=== PATIENT | male | born 1960 | race Caucasian/White ===

== ENCOUNTER 2017-02-06 07:00 | Outpatient (CLI) | payer OTHER ==
--- NOTE | 2017-02-06 17:02 | Ultrasound Report ---
EXAM: ABDOMEN ULTRASOUND LIMITED, RUQ EXAM DATE: 02/06/2017 07:47 AM. CLINICAL HISTORY: Elevated liver function tests COMPARISON: None. TECHNIQUE: Real-time scanning was performed with static images obtained. FINDINGS: Liver: Diffuse increase in echogenicity without focal lesion. 16.5 cm. Main portal vein flow: Hepatop etal. Gallbladder: Normal. No stones, wall thickening, or sonographic Wilkerson's sign. Biliary System: CBD measures 3 mm. No intrahepatic or extrahepatic ductal dilatation. Other: Right kidney measures 10.1 cm without hydronephrosis. IMPRESSION: 1. No evidence of cholelithiasis or cholecystitis. 2. Fatty infiltration of the liver. [facility] Referring Provider Line: [phone] SITE ID: [id number]
== END 2017-02-06 07:01 | disposition home or self-care (01) ==
LOC: DI 07:00
PROVIDERS: ATTEND Internal Medicine
DX: K76.0 Fatty (change of) liver, not elsewhere classified (principal)
CPT/HCPCS: 76705

== ENCOUNTER 2018-10-22 20:04 | Observation (INO) | payer OTHER ==
[2018-10-22] MEDS ORDERED: SODIUM CHLORIDE 0.9% 1,000 ML IV ONE (20:52)
[2018-10-22] MEDS ORDERED: KETOROLAC 15 MG/ML VIAL IVP STA (20:52)
[2018-10-22] MEDS ORDERED: METOCLOPRAMIDE 10 MG/2 ML VIAL IVP STA (20:52)
[2018-10-22] MEDS ORDERED: diphenhydrAMINE INJ 50 MG/ML VIAL IVP STA (20:52)
[2018-10-22] MEDS ORDERED: MAGNESIUM SULFATE 2 GRAM 2 GM/50 ML BAG IV ONE (20:53)
[2018-10-22 20:57] LABS: BASOPHILS % (AUTO) 0.8 %; EOSINOPHILS % (AUTO) 0.8 %; HGB - HEMOGLOBIN 14.2 g/dL (14.0-18.0); LYMPHOCYTES # (AUTO) 1.1 10^3/uL (1.5-3.5); LYMPHOCYTES % (AUTO) 19.5 %; MEAN CORPUSCULAR HEMOGLOBIN 32.3 pg (27.0-31.0); MEAN CORPUSCULAR HGB CONC 33.9 g/dL (32.0-36.0); MEAN CORPUSCULAR VOLUME 95.4 fL (80.0-94.0); MEAN PLATELET VOLUME 8.1 fL (7.4-11.4); MONOCYTES # (AUTO) 0.5 10^3/uL (0.0-1.0); MONOCYTES % (AUTO) 9.4 %; NEUTROPHILS % (AUTO) 69.5 %; PLT - PLATELET COUNT 193 10^3/uL (130-450); RED CELL DISTRIBUTION WIDTH 13.3 % (12.0-15.0); WHITE BLOOD COUNT 5.7 x10^3/uL (4.8-10.8)
--- NOTE | 2018-10-22 21:12 | ED Physician Documentation ---
History of Present Illness - Stated complaint Stated Complaint: HBP/MANCUSO - Chief complaint Chief Complaint: Neuro - Additonal information Additional information: 58-year-old male presents the emergency department with headache for the past week, weakness, elevated blood pressure and generally feeling unwell which has progressively worsened. The patient reports numbness and tingling. The patient is on losartan to help manage his blood pressure.The patient's symptoms are described as moderate. No relieving factors. The patient's reporting that he had worsening headache tonight with nausea and vomiting. Review of Systems Constitutional: denies: Fever, Fatigue Eyes: denies: Discharge Ears: denies: Ear pain Nose: denies: Congestion Throat: denies: Sore throat Cardiac: denies: Chest pain / pressure Respiratory: denies: Cough GI: reports: Nausea, Vomiting. denies: Abdominal Pain : denies: Dysuria Neurologic: reports: Numbness, Headache. denies: Generalized weakness, Focal weakness, Syncope, Seizure, Confused Psychiatric: denies: Depressed PD PAST MEDICAL HISTORY - Past Medical History Past Medical History: Yes GI: GERD - Past Surgical History Past Surgical History: Yes General: Hiatal hernia repair - Present Medications Home Medications: Ambulatory Orders Medication Instructions Recorded Confirmed Omeprazole Magnesium [Prilosec Otc] 20 mg PO DAILY 07/19/15 10/22/18 Losartan Potassium 1 tab PO DAILY 10/22/18 10/22/18 - Allergies Allergies/Adverse Reactions: Allergies Allergy/AdvReac Type Severity Reaction Status Date / Time No Known Drug Allergies Allergy Verified 10/22/18 20:37 - Social History Does the pt smoke?: No Smoking Status: Never smoker Does the pt drink ETOH?: No Does the pt have substance abuse?: Yes - Immunizations Immunizations are current?: No - POLST Patient has POLST: No PD ED PE NORMAL - General General: Alert and oriented X 3, No acute distress - HEENT HEENT: Atraumatic, PERRL, EOMI, Ears normal, Moist mucous membranes - Neck Neck: Supple, no meningeal sign - Cardiac Cardiac: RRR, Strong equal pulses - Abdomen Abdomen: Soft, Non tender - Back Back: No CVA TTP - Derm Derm: Normal color - Extremities Extremities: No deformity - Neuro Neuro: Alert and oriented X 3, 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, No motor deficit, No sensory deficit, Normal speech - Psych Psych: Normal mood Results - Vitals Vitals: Vital Signs - 24 hr 10/22/18 10/22/18 10/22/18 20:18 20:50 21:07 Temperature 36.5 C Heart Rate 70 75 71 Respiratory 18 13 15 Rate Blood Pressure 185/101 H 191/121 H 170/116 H O2 Saturation 98 98 96 10/22/18 10/22/18 10/22/18 21:18 21:40 22:09 Temperature Heart Rate 68 72 Respiratory 14 14 Rate Blood Pressure 172/113 H 176/104 H 155/92 H O2 Saturation 97 97 Oxygen O2 Source Room air - EKG (time done) 20:20 Rate: Rate (enter#) Rhythm: NSR Mullens: Normal Intervals: Normal OH, QRS normal QRS: Normal Ischemia: Non specific changes Compare to prior EKG: Old EKG unavailable - Labs Labs: Laboratory Tests 10/22/18 10/22/18 10/22/18 20:45 20:45 20:45 WBC 5.7 RBC 4.40 L Hgb 14.2 Hct 41.9 L MCV 95.4 H MCH 32.3 H MCHC 33.9 RDW 13.3 Plt Count 193 MPV 8.1 Neut # (Auto) 4.0 Lymph # (Auto) 1.1 L [place] # (Auto) 0.5 Eos # (Auto) 0.0 Baso # (Auto) 0.0 Absolute Nucleated RBC 0.00 Nucleated RBC % 0.1 Sodium 118 L* Potassium 4.3 Chloride 85 L Carbon Dioxide 23 Anion Gap 10.0 BUN 8 Creatinine 0.6 Estimated GFR (MDRD) 137 Glucose 107 H Calcium 8.6 Total Bilirubin 1.2 H AST 38 ALT 43 Alkaline Phosphatase 55 Troponin I < 0.04 Total Protein 7.0 Albumin 4.0 Globulin 3.0 Albumin/Globulin Ratio 1.3 Lipase 29 - Rads (name of study) CT head Radiology: Final report received (IMPRESSION: Normal head CT), See rad report CXR Radiology: Final report received, See rad report PD MEDICAL DECISION MAKING - ED course ED course: The Patient symptoms most likely are secondary to the hyponatremia which most likely secondary to medication usage. The patient will require admission to the hospital for further management of his hyponatremia. On reevaluation the patient was feeling much improved and the findings and plan were discussed the patient agrees to the plan. The case was discussed with the hospitalist who accepts the patient onto his service Departure - Departure Disposition: 66 [facility] DC/Xfer Clinical Impression: Hyponatremia Headache Qualifiers: Headache type: unspecified Headache chronicity pattern: acute headache Intractability: not intractable Qualified Code(s): R51 - Headache Hypertension Qualifiers: Hypertension type: unspecified Qualified Code(s): I10 - Essential (primary) hypertension
[2018-10-22 21:29] LABS: ALBUMIN/GLOBULIN RATIO 1.3 (1.0-2.2); BILIRUBIN,TOTAL 1.2 mg/dL (0.2-1.0); CALCIUM 8.6 mg/dL (8.5-10.3); CREATININE 0.6 mg/dL (0.6-1.2)
--- NOTE | 2018-10-22 22:03 | CT Report ---
Reason: MANCUSO, elevated BP Procedure Date: 10/22/2018 Accession Number: [id number] / [id number] Procedure: CT - Head W/O CPT Code: FULL RESULT: EXAM: CT HEAD EXAM DATE: 10/22/2018 09:53 PM. CLINICAL HISTORY: Headache, hypertension COMPARISON: None. TECHNIQUE: Multiaxial CT images were obtained from the foramen magnum to the vertex. Reformats: Sagittal and coronal. IV contrast: None. In accordance with CT protocol optimization, one or more of the following dose reduction techniques were utilized for this exam: automated exposure control, adjustment of mA and/or KV based on patient size, or use of iterative reconstructive technique. FINDINGS: Parenchyma: No intraparenchymal hemorrhage. No evidence of mass, midline shift, or CT findings of infarction. Guardado-white differentiation is distinct. Extraaxial Spaces: Normal for age. No subdural or epidural collections identified. Ventricles: Normal in size and position. Sinuses and Orbits: Imaged paranasal sinuses, orbits, and mastoids show no significant abnormality. Bones: No evidence of fracture or calvarial defect. Other: None. IMPRESSION: Normal head CT. [facility]
--- NOTE | 2018-10-22 22:33 | XRAY Report ---
Reason: N/V elevated blood pressure Procedure Date: 10/22/2018 Accession Number: [id number] / [id number] Procedure: XR - Chest 2 View X-Ray CPT Code: 07656 FULL RESULT: EXAM: CHEST RADIOGRAPHY EXAM DATE: 10/22/2018 09:41 PM. CLINICAL HISTORY: N/V elevated blood pressure. Nausea and vomiting. COMPARISON: ABDOMEN LIMITED 02/06/2017 7:14 AM. TECHNIQUE: 2 views. FINDINGS AND IMPRESSION: Lungs/Pleura: Mild diffuse bilateral interstitial opacities, could represent mild interstitial pulmonary edema versus infectious/inflammatory disease. Underlying interstitial fibrosis is also possible. No pleural effusion or pneumothorax. Mediastinum: Heart and mediastinal contours are unremarkable. Other: Moderate L1, T12 and T11 compression deformities, age indeterminate. [facility]
[2018-10-22] MEDS ORDERED: SODIUM CHLORIDE FLUSH 0.9% 10 ML SYRINGE IVP PRN (23:24)
[2018-10-22] MEDS ORDERED: ONDANSETRON 4 MG/2 ML VIAL IVP PRN (23:24)
[2018-10-22] MEDS ORDERED: hydrALAZINE INJ 20 MG/ML VIAL IVP PRN (23:32)
[2018-10-22] MEDS ORDERED: SODIUM CHLORIDE 0.9% 1,000 ML IV SCH (23:45)
[2018-10-22 23:53] LABS: CALCIUM 8.5 mg/dL (8.5-10.3); CREATININE 0.6 mg/dL (0.6-1.2)
[2018-10-23] MEDS: SODIUM CHLORIDE FLUSH 0.9% 10 ML SYRINGE IVP SCH ×2 (00:44→06:25)
[2018-10-23] MEDS: ACETAMINOPHEN 325 MG TABLET PO PRN ×2 (00:51→08:02)
[2018-10-23] MEDS ORDERED: KETOROLAC 15 MG/ML VIAL IVP PRN (01:03)
--- NOTE | 2018-10-23 01:12 | HISTORY & PHYSICAL EXAMINATION ---
Chief Complaint - Chief Complaint Chief Complaint: headache History of Present Illness - Admitted From Admitted From:: [facility] ED - History Obtained From History obtained from: patient - History of Present Illness HPI Comment/Other: Patient is a 58 y/o male with hypertension and GERD who presented to the ED with intermittent headache for the past week. He denied dizziness or problems with vision or speech. He complained of tingling in his left arm which resolved around 6pm on 10/23/18. He denied dyspnea, abd pain, fever or chills. He was nauseous on his way to the hospital and had one episode of vomiting. In the ED, his SBP was as high as 190. He was also found to have a sodium level of 118. As a result he is being admitted for further treatment. The rest of his history is unremarkable. History - Past Medical History Cardiovascular: reports: Hypertension Respiratory: reports: None Neuro: reports: None Endocrine/Autoimmune: reports: None GI: reports: GERD : reports: None HEENT: reports: None Musculoskeletal: reports: Chronic back pain, Other Derm: reports: None MRSA Hx?: No Other Past Medical History: Hip pain - Past Surgical History General: reports: Hiatal hernia repair - Family & Social History Family History Comment/Other: Denies any significant medical problem in his family members Living arrangement: At home Living Situation: With spouse/s.o. - Substance History Use: Uses substance without health or social issues: Alcohol (Reports drinking on average 3 beers daily) - POLST Patient has POLST: No POLST Status: Full Code Meds/Allgy - Home Medications Home Medications: Ambulatory Orders Medication Instructions Recorded Confirmed Omeprazole Magnesium [Prilosec Otc] 20 mg PO DAILY 07/19/15 10/22/18 Losartan Potassium 1 tab PO DAILY 10/22/18 10/22/18 - Allergies Allergies/Adverse Reactions: Allergies Allergy/AdvReac Type Severity Reaction Status Date / Time No Known Drug Allergies Allergy Verified 10/22/18 20:37 Review of Systems - Constitutional Constitutional: denies: Fatigue, Fever, Chills - Eyes Eyes: denies: Pain, Blurred vision, Dipolpia - Ears, Nose & Throat Ears, Nose & Throat: denies: Ear pain, Hearing loss, Vertigo - Cardiovascular Cariovascular: denies: Palpitations, Chest pain, Edema, Lightheadedness, Syncope - Respiratory Respiratory: denies: Cough, Wheezing, Snoring, SOB at rest - Gastrointestinal Gastrointestinal: reports: Nausea, Vomiting. denies: Abdominal pain, Abdominal distention, Constipation, Diarrhea - Genitourinary Genitourinary: denies: Dysuria, Frequency, Urgency - Musculoskeletal Musculoskeletal: denies: Back pain, Muscle aches - Integumentary Integumentary: denies: Rash, Lesions, Dryness - Neurological Neurological: reports: Headache. denies: General weakness, Dizziness - Psychiatric Psychiatric: denies: Depression, Anxiety - Endocrine Endocrine: denies: Polyuria, Polydypsia, Polyphagia - Hematologic/Lymphatic Hematologic/Lymphatic: denies: Anemia, Bruising, Petechiae Prior Level of Functionality: Patient is independent in activities of daily living Exam - Vital Signs Reviewed Vital Signs: Yes Vital Signs: Vital Signs x48h Temp Pulse Pulse Resp BP BP Pulse Ox 10/23/18 00:59 155/93 H 10/23/18 00:46 36.5 C 75 17 157/95 H 98 10/22/18 23:52 36.4 C L 78 15 152/93 H 96 10/22/18 22:52 70 15 177/105 H 98 10/22/18 22:09 72 14 155/92 H 97 10/22/18 21:40 176/104 H 10/22/18 21:18 68 14 172/113 H 97 10/22/18 21:07 71 15 170/116 H 96 10/22/18 20:50 75 13 191/121 H 98 10/22/18 20:18 36.5 C 70 18 185/101 H 98 - Physical Exam General Appearance: positive: Alert, Mild distress Eyes Bilateral: positive: Normal inspection, EOMI ENT: positive: ENT inspection nml Neck: positive: Nml inspection, No JVD, Trachea midline Respiratory: positive: Chest non-tender, No respiratory distress, Breath sounds nml. negative: Wheezes, Rhonchi Cardiovascular: positive: Regular rate & rhythm. negative: No murmur, No gallop Abdomen: positive: Non-tender, Nml bowel sounds, No distention. negative: Guarding, Rebound Skin: positive: Color nml, Warm. negative: No rash Extremities: positive: Non-tender, Nml appearance, No pedal edema Neurologic/Psychiatric: positive: Oriented x3 Conclusion/Plan - Problem List (1) Hypertension Conclusion/Plan: Uncontrolled Patient on losartan at home Will add hydralazine 10mg IV q4hr prn for SBP>160 Tylenol and/or toradol for headaches Qualifiers: Hypertension type: unspecified Qualified Code(s): I10 - Essential (primary) hypertension (2) Hyponatremia Conclusion/Plan: Appears euvolemic Etiology undetermined Mentation fully intact Patient give 1L bolus of normal saline. Na recheck is 123. Goal is a Na rise of not more than 8 [id number] q24hrs Normal saline running at 75 ml/hr. Na level check q4hrs. If rising too fast, will switch to D5 half NS (3) GERD (gastroesophageal reflux disease) Conclusion/Plan: Protonix ordered (4) Headache Conclusion/Plan: Likely 2/2 uncontrolled hypertension. Anticipate resolution with control of blood pressure Will treat with tylenol and/or toradol for now. Qualifiers: Headache type: unspecified Headache chronicity pattern: acute headache Intractability: not intractable Qualified Code(s): R51 - Headache - Lab Results Fish Bones: 10/22/18 20:45 10/22/18 23:40 Core Measures - Anticipated LOS I expect patient to be DC'd or transferred within 96 hours.: Yes - DVT/VTE - Prophylaxis VTE/DVT Device ordered at admit?: Yes VTE/DVT Prophylaxis med ordered at admit?: Yes
[2018-10-23 03:56] LABS: CALCIUM 8.7 mg/dL (8.5-10.3); CREATININE 0.5 mg/dL (0.6-1.2)
[2018-10-23] MEDS ORDERED: D5.45NS W/20 MEQ KCL 1,000 ML IV SCH (06:00)
[2018-10-23] MEDS ORDERED: PANTOPRAZOLE 40 MG TABLET PO SCH (07:00)
[2018-10-23 08:03] LABS: CALCIUM 8.4 mg/dL (8.5-10.3); CREATININE 0.5 mg/dL (0.6-1.2)
[2018-10-23 08:04] LABS: BILIRUBIN,URINE NEGATIVE (NEGATIVE); CLARITY,URINE CLEAR (CLEAR); GLUCOSE, URINE (UA) NEGATIVE (NEGATIVE); KETONES,URINE (UA) NEGATIVE (NEGATIVE); LEUKOCYTE ESTERASE, URINE NEGATIVE (NEGATIVE); NITRITE,URINE NEGATIVE (NEGATIVE); OCCULT BLOOD,URINE NEGATIVE (NEGATIVE); PROTEIN,URINE NEGATIVE (NEGATIVE); UROBILINOGEN,URINE 0.2 (NORMAL) E.U./dL (NORMAL)
[2018-10-23 08:06] VITALS: BP 154/91
[2018-10-23 08:16] LABS: BACTERIA,URINE None Seen /HPF (None Seen); RBC,URINE None Seen /HPF (0-5); SQUAMOUS EPITHELIAL CELL,UR NONE SEEN (<= Few)
[2018-10-23 08:21] LABS: BASOPHILS % (AUTO) 0.7 %; EOSINOPHILS # (AUTO) 0.1 10^3/uL (0.0-0.7); EOSINOPHILS % (AUTO) 1.4 %; LYMPHOCYTES # (AUTO) 1.2 10^3/uL (1.5-3.5); LYMPHOCYTES % (AUTO) 25.7 %; MEAN CORPUSCULAR HGB CONC 35.5 g/dL (32.0-36.0); MEAN PLATELET VOLUME 8.4 fL (7.4-11.4); MONOCYTES # (AUTO) 0.5 10^3/uL (0.0-1.0); MONOCYTES % (AUTO) 10.8 %; NEUTROPHILS # (AUTO) 2.9 10^3/uL (1.5-6.6); NEUTROPHILS % (AUTO) 61.4 %; PLT - PLATELET COUNT 193 10^3/uL (130-450); RED BLOOD COUNT 4.54 10^6/uL (4.70-6.10); RED CELL DISTRIBUTION WIDTH 13.1 % (12.0-15.0); WHITE BLOOD COUNT 4.8 x10^3/uL (4.8-10.8)
[2018-10-23] MEDS ORDERED: FUROSEMIDE 40 MG TABLET PO SCH (09:00)
[2018-10-23] MEDS ORDERED: POLYETHYLENE GLYCOL 3350 17 GM PACKET PO SCH (09:00)
[2018-10-23] MEDS ORDERED: ENOXAPARIN 40 MG/0.4 ML SYRINGE SUBQ SCH (09:00)
[2018-10-23] MEDS ORDERED: OXYMETAZOLINE NASAL SPRAY NAS SCH (11:00)
[2018-10-23] MEDS ORDERED: FLUTICASONE NASAL SPRAY NAS SCH (11:00)
[2018-10-23 12:12] LABS: ALBUMIN 4.7 g/dL (3.2-5.5); ALBUMIN/GLOBULIN RATIO 1.1 (1.0-2.2); BILIRUBIN,TOTAL 2.5 mg/dL (0.2-1.0); CALCIUM 9.5 mg/dL (8.5-10.3); CREATININE 0.7 mg/dL (0.6-1.2); TOTAL PROTEIN 8.9 g/dL (6.7-8.2)
[2018-10-23 12:40] LABS: HB2 TOTAL 18.9 g/dL; HEMOGLOBIN A1C 0.71 g/dL; HEMOGLOBIN A1C % 5.6 % (4.6-6.2)
--- NOTE | 2018-10-23 12:45 | Discharge Plan ---
Discharge Plan Disposition: Home, Self Care Condition: Good Prescriptions: Fluticasone [Flonase] 1 sprays MANUELITO DAILY #1 bottle Losartan/Hydrochlorothiazide [Losartan-Hctz 100-12.5 mg Tab] 1 each PO DAILY #30 tablet Oxymetazoline HCl [Afrin] 15 ml NS BID #1 mist Diet: Regular Activity Restrictions: Activity as Tolerated Shower Restrictions: No Driving Restrictions: No Additional Instructions or Follow Up instructions: You were admitted for low salt in your blood, called hyponatremia. The most likely cause of your headaches is chronic sinusitis based on your exam, after learning what type of work that you do and the location of your headache. For this you should take Afrin spray x3 days or for 6 doses then stop. Also, take Flonase nasal, 2 sprays daily, which is a steroid spray that does not get into your blood stream and will with inflammation. Your alcohol use is considered "risky" meaning more than 14 per week or more than 4 in one day. Labs show that this is longstanding with your liver enzymes, including bilirubin that were elevated today. The dose of Losartan that you are prescribed is above the recommended, so please stop this and I have sent a blended type pill with losartan and hydrochlorothiazide to the pharmacy. Please have your PCP order an echocardiogram to evaluate the heart murmur that was found on exam today. In the future, try not to drink plain water in large amounts, limit water intake to only 2000 mL per day. Take the hospital cup home today, there are measurements on it. The other thing that causes excessive thirst is pre-diabetes or diabetes, and these labs are pending. Your thyroid function test was normal. I will call you if these come back abnormal. Please see your PCP within one week. No Smoking: If you smoke, Please STOP! Call for help. Follow-up with: Chava Grant MD [Primary Care Provider] -
--- NOTE | 2018-10-23 13:05 | DISCHARGE SUMMARY ---
Discharge Summary Admit Date: 10/22/18 Discharge Date: 10/23/18 Discharging Provider: MARIN Barksdale Primary Care Provider: Chava Grant Code Status: Attempt Resuscitation Condition at Discharge: Good Discharge Disposition: 01 Home, Self Care - DIAGNOSES Admission Diagnoses: Essential (primary) hypertension (I10) Hypo-osmolality and hyponatremia (E87.1) Gastro-esophageal reflux disease without esophagitis (K21.9) Headache (R51) Discharge Diagnoses with Status of Each Condition: Hypertensive crisis (I16.9) resolved. Hypertension (I10) chronic, Losartan home dose was greater than recommended, so changed to daily dose with hydrochlorothiazide. Headache (R51) resolved. Sinusitis (J32.9) chronic, continued daily Flonase. Hyponatremia (E87.1) resolved. Primary polydipsia (R63.1) resolved. Alcoholism (F10.20) chronic, encouraged to cut back use. Nocturia (R35.1) chronic, stable. Fatty liver (K76.0) chronic, patient told of this to encourage drinking cessation. Medical non-compliance (Z91.19) chronic, stable. - HPI History of Present Illness: HPI per Dr. Gonzalez: Patient is a 58 y/o male with hypertension and GERD who presented to the ED with intermittent headache for the past week. He denied dizziness or problems with vision or speech. He complained of tingling in his l eft arm which resolved around 6pm on 10/23/18. He denied dyspnea, abd pain, fever or chills. He was nauseous on his way to the hospital and had one episode of vomiting. In the ED, his SBP was as high as 190. He was also found to have a sodium level of 118. As a result he is being admitted for further treatment. The rest of his history is unremarkable. - ALLERGIES Allergies/Adverse Reactions: Allergies Allergy/AdvReac Type Severity Reaction Status Date / Time No Known Drug Allergies Allergy Verified 10/22/18 20:37 - MEDICATIONS Home Medications: Ambulatory Orders Medication Instructions Recorded Confirmed Doxazosin Mesylate 1 mg PO QPM 10/23/18 10/23/18 Fluticasone [Flonase] 1 sprays MANUELITO DAILY #1 bottle 10/23/18 Losartan/Hydrochlorothiazide 1 each PO DAILY #30 tablet 10/23/18 [Losartan-Hctz 100-12.5 mg Tab] Oxymetazoline HCl [Afrin] 15 ml NS BID #1 mist 10/23/18 - PHYSICAL EXAM AT DISCHARGE General Appearance: positive: No acute distress, Alert Eyes Bilateral: positive: PERRL, No lid inflammation ENT: positive: Pharynx nml, No signs of dehydration, Other (tympanic membranes very tight bilaterally, mucous noted in inner ear, tenderness noted to frontal sinuses.) Neck: positive: Thyroid nml, No JVD, Trachea midline Cardiovascular: positive: Regular rate & rhythm, No gallop, Systolic murmur (decreased systolic mitral murmur as compared to admission when intra-vascular fluid was high.) Peripheral Pulses: positive: 2+ Abdomen: positive: Non-tender, Nml bowel sounds, Other (rounded, soft) Back: positive: Nml inspection Skin: positive: No rash, Warm, Dry, Other (bronze) Extremities: positive: Non-tender, Full ROM, Nml appearance Neurologic/Psychiatric: positive: Oriented x3, CN's nml (2-12), Motor nml, Sensation nml, Mood/affect nml Reflexes: Bicep (R): 3+, Bicep (L): 3+ - LABS Result Diagrams: 10/23/18 07:20 10/23/18 11:50 - SEPSIS Current Stage of Sepsis: Ruled out - FOLLOW UP Follow Up: Disposition: Home, Self Care Prescriptions: Fluticasone [Flonase] 1 sprays MANUELITO DAILY #1 bottle Losartan/Hydrochlorothiazide [Losartan-Hctz 100-12.5 mg Tab] 1 each PO DAILY #30 tablet Oxymetazoline HCl [Afrin] 15 ml NS BID #1 mist Additional Instructions or Follow Up instructions: You were admitted for low salt in your blood, called hyponatremia. The most likely cause of your headaches is chronic sinusitis based on your exam, after learning what type of work that you do and the location of your headache. For this you should take Afrin spray x3 days or for 6 doses then stop. Also, take Flonase nasal, 2 sprays daily, which is a steroid spray that does not get into your blood stream and will with inflammation. Your alcohol use is considered "risky" meaning more than 14 per week or more than 4 in one day. Labs show that this is longstanding with your liver enzymes, including bilirubin that were elevated today. The dose of Losartan that you are prescribed is above the recommended, so please stop this and I have sent a blended type pill with losartan and hydrochlorothia zide to the pharmacy. Please have your PCP order an echocardiogram to evaluate the heart murmur that was found on exam today. In the future, try not to drink plain water in large amounts, limit water intake to only 2000 mL per day. Take the hospital cup home today, there are measurements on it. The other thing that causes excessive thirst is pre-diabetes or diabetes, and these labs are pending. Your thyroid function test was normal. I will call you if these come back abnormal. - TIME SPENT Time Spent in Discharge (Minutes): 50
== END 2018-10-23 13:28 | disposition home or self-care (01) ==
LOC: ED 20:04 → MS2 23:24 → INTOOBSV 23:24
PROVIDERS: ADMIT Nurse Practitioner; ATTEND Nurse Practitioner
DX: I16.9 Hypertensive crisis, unspecified (principal); I10 Essential (primary) hypertension; E87.1 Hypo-osmolality and hyponatremia; K21.9 Gastro-esophageal reflux disease without esophagitis; R51 Headache; J32.9 Chronic sinusitis, unspecified; R63.1 Polydipsia; F10.20 Alcohol dependence, uncomplicated; R35.1 Nocturia; K76.0 Fatty (change of) liver, not elsewhere classified; Z91.19 Patient's noncompliance with other medical treatment and regimen; Z79.899 Other long term (current) drug therapy
CPT/HCPCS: 36415; 70450; 71046; 80048; 80053; 81001; 82977; 83036; 83690; 83880; 84443; 84484; 85025; 93005; 96365; 96366; 96367; 96375; 99284; 99285; A9270; G0378; J1200; J2765; 83930; 83935; 87086

== ENCOUNTER 2019-01-11 13:55 | Outpatient (CLI) | payer OTHER ==
--- NOTE | 2019-01-11 15:36 | XRAY Report ---
Reason: PAIN IN RIGHT HIP, HEADACHE Procedure Date: 01/11/2019 Accession Number: [id number] / [id number] Procedure: XR - Cervical Spine 2 View CPT Code: FULL RESULT: EXAM: CERVICAL SPINE RADIOGRAPHY. EXAM DATE: 01/11/2019 02:50 PM. CLINICAL HISTORY: Pain in right hip, headache. COMPARISONS: None. TECHNIQUE: 3 views. FINDINGS: Alignment: Normal. No spondylolisthesis or scoliosis. Bones: The cervical vertebral bodies and posterior elements are well visualized from the skull base through C7-T1. No fractures or bone lesions. Disks: Minimal disk space narrowing at C4-C5 and C5-C6 with mild marginal osteophytosis. Facets: No significant degenerative changes. Soft Tissues: Calcifications are seen of the carotid bifurcations. IMPRESSION: Mild degenerative changes. [facility]
--- NOTE | 2019-01-11 15:36 | XRAY Report ---
Reason: PAIN IN RIGHT HIP, HEADACHE Procedure Date: 01/11/2019 Accession Number: [id number] / [id number] Procedure: XR - Hips 2V BILAT CPT Code: FULL RESULT: EXAM: BILATERAL HIP RADIOGRAPHY. EXAM DATE: 01/11/2019 02:50 PM. CLINICAL HISTORY: Pain in right hip, headache. COMPARISON: None. TECHNIQUE: 2 views each. FINDINGS: Bones: Normal. No fractures or bone lesion. Right Hip: Mild to moderate joint space narrowing, medial predominant pattern. No subluxation. Left Hip: Mild to moderate joint space narrowing, medial predominant pattern. No subluxation. Soft Tissues: Normal. No soft tissue swelling. IMPRESSION: Symmetric joint space narrowing of the hips, medial predominant pattern. [facility]
== END 2019-01-11 13:56 | disposition home or self-care (01) ==
LOC: DI 13:55
PROVIDERS: ATTEND Internal Medicine
DX: M16.0 Bilateral primary osteoarthritis of hip (principal); M50.321 Other cervical disc degeneration at C4-C5 level
CPT/HCPCS: 72040; 73521

== ENCOUNTER 2020-10-07 08:00 | Outpatient (CLI) | payer MEDICAID, OTHER ==
--- NOTE | 2020-10-07 11:34 | XRAY Report ---
PROCEDURE: Ribs w/PA Chest LT INDICATIONS: LEFT SIDED RIB PAIN TECHNIQUE: 2 views of the left ribs were acquired, along with a single view chest. COMPARISON: Two-view chest 10/22/2018 FINDINGS: Surgical changes and devices: None. Bones and chest wall: No fractures or dislocations. No suspicious bony lesions. Overlying soft tis sues appear unremarkable. Lungs and pleura: No pleural effusions or pneumothorax. Lungs appear clear. Mediastinum: Mediastinal contours appear normal. Heart size is normal. IMPRESSION: No trauma found. A metallic marker was placed in the area of maximal tenderness medial lower left rib s superimposed upon by the upper abdominal structures. This reduces the quality of visualization in t hat area. A pneumothorax is not present. Follow-up by delayed plain films or nuclear medicine bone sc an could be obtained if clinically warranted if unusual symptoms persist. Reviewed by: Denys Heath MD on 10/07/2020 11:32 AM PST Approved by: Denys Heath MD on 10/07/2020 11:32 AM PST Station ID: [id number]
== END 2020-10-07 23:59 | disposition home or self-care (01) ==
LOC: DI.S 08:00
PROVIDERS: ATTEND Physician Assistant Medical
DX: S22.32XA Fracture of one rib, left side, initial encounter for closed fracture (principal)

== ENCOUNTER 2020-11-18 07:31 | Outpatient (CLI) | payer MEDICAID ==
[2020-11-18 16:06] LABS: BASOPHILS # (AUTO) 0.1 10^3/uL (0.0-0.1); BASOPHILS % (AUTO) 1.1 %; EOSINOPHILS # (AUTO) 0.1 10^3/uL (0.0-0.7); EOSINOPHILS % (AUTO) 1.5 %; HCT - HEMATOCRIT 47.4 % (42.0-52.0); HGB - HEMOGLOBIN 15.7 g/dL (14.0-18.0); LYMPHOCYTES # (AUTO) 1.1 10^3/uL (1.5-3.5); LYMPHOCYTES % (AUTO) 23.8 %; MEAN CORPUSCULAR HEMOGLOBIN 32.6 pg (27.0-31.0); MEAN CORPUSCULAR HGB CONC 33.1 g/dL (32.0-36.0); MEAN CORPUSCULAR VOLUME 98.3 fL (80.0-94.0); MEAN PLATELET VOLUME 11.4 fL (7.4-11.4); MONOCYTES # (AUTO) 0.5 10^3/uL (0.0-1.0); MONOCYTES % (AUTO) 11.1 %; NEUTROPHILS # (AUTO) 2.9 10^3/uL (1.5-6.6); NEUTROPHILS % (AUTO) 62.3 %; PLT - PLATELET COUNT 268 10^3/uL (130-450); RED BLOOD COUNT 4.82 10^6/uL (4.70-6.10); RED CELL DISTRIBUTION WIDTH 12.7 % (12.0-15.0); WHITE BLOOD COUNT 4.7 x10^3/uL (4.8-10.8)
[2020-11-18 16:34] LABS: ALBUMIN 4.7 g/dL (3.2-5.5); ALBUMIN/GLOBULIN RATIO 1.5 (1.0-2.2); ALKALINE PHOSPHATASE 50 IU/L (42-121); ALT ALANINE AMINOTRANSFERASE 32 IU/L (10-60); AST ASPARTATE AMINOTRANSFERASE 25 IU/L (10-42); BILIRUBIN,TOTAL 1.4 mg/dL (0.2-1.0); BUN - BLOOD UREA NITROGEN 12 mg/dL (6-20); CALCIUM 9.6 mg/dL (8.5-10.3); CARBON DIOXIDE - CO2 27 mmol/L (21-32); CHLORIDE 96 mmol/L (101-111); CHOL/HDL RATIO 2.5 (<5.0); CHOLESTEROL 177 mg/dL; CREATININE 0.8 mg/dL (0.6-1.2); GFR - MDRD 98 (>89); GLUCOSE 107 mg/dL (70-100); HDL CHOLESTEROL 71 mg/dL; LDL CHOLESTEROL,CALCULATED 91 mg/dL; LDL/HDL RATIO 1.3 (<3.6); POTASSIUM 4.4 mmol/L (3.5-5.0); SODIUM 131 mmol/L (135-145); TOTAL PROTEIN 7.8 g/dL (6.7-8.2); TRIGLYCERIDES 73 mg/dL; VLDL CHOLESTEROL 15 mg/dL
[2020-11-18 16:35] LABS: THYROID STIMULATING HORMONE 1.64 uIU/mL (0.34-5.60)
== END 2020-11-18 07:32 | disposition home or self-care (01) ==
LOC: LAB.S 07:31
PROVIDERS: ATTEND Registered Nurse
DX: Z00.00 Encounter for general adult medical examination without abnormal findings (principal); D64.9 Anemia, unspecified; R03.0 Elevated blood-pressure reading, without diagnosis of hypertension; Z86.79 Personal history of other diseases of the circulatory system
CPT/HCPCS: 36415; 80053; 80061; 83721; 84153; 84443; 85025

== ENCOUNTER 2021-01-25 08:00 | Outpatient (CLI) | payer MEDICAID | END 2021-01-25 23:59 | disposition home or self-care (01) | LOC: LAB.S 08:00 | PROVIDERS: ATTEND Physician Assistant | DX: J34.89 Other specified disorders of nose and nasal sinuses (principal); R51.9 Headache, unspecified ==

== ENCOUNTER 2021-11-23 09:06 | Outpatient (CLI) | payer OTHER ==
--- NOTE | 2021-11-23 10:15 | Ultrasound Report ---
PROCEDURE: Abdomen Complete INDICATIONS: ELEVATED BILIRUBIN TECHNIQUE: Real-time scanning was performed of the abdominal and retroperitoneal organs, with image documentatio n. COMPARISON: None. FINDINGS: Liver: Liver is normal in size and homogeneous in echotexture. There is a question of mildly increa sed echogenicity of the liver, possibly representing mild hepatic steatosis. Gallbladder: Unremarkable. No stones or wall thickening or pain on examination. Biliary ducts: Intrahepatic bile ducts are non-dilated. Extrahepatic bile duct caliber measures 3 m m. Normal is 6-7 mm or less in diameter, or 10 mm or less post-cholecystectomy. Pancreas: Visualized portions of the pancreas are sonographically normal. Spleen: Spleen is normal in size and homogeneous in echotexture. Kidneys: Kidneys are normal in size and echotexture. Right kidney measures 10.7 cm long; left kidne y measures 12.4 cm long. No hydronephrosis or nephrolithiasis. No solid masses. Aorta: Visualized aorta is normal in caliber at less than 3 cm. Iliacs: Proximal common iliac arteries are normal in caliber at less than 2.5 cm. IVC: Intrahepatic inferior vena cava is patent. Miscellaneous: No free abdominal fluid. IMPRESSION: 1. Question mild hepatic steatosis. 2. No evidence of biliary obstruction. No gallstone disease. Reviewed by: Desean Adams MD on 11/23/2021 9:14 AM [facility] Approved by: Desean Adams MD on 11/23/2021 9:14 AM [facility] Station ID: [id number]
== END 2021-11-23 09:07 | disposition home or self-care (01) ==
LOC: DI 09:06
PROVIDERS: ATTEND Internal Medicine
DX: R17 Unspecified jaundice (principal)

== ENCOUNTER 2021-12-27 10:34 | Emergency (ER) | payer MEDICAID, OTHER ==
--- NOTE | 2021-12-27 10:47 | ED Physician Documentation ---
History of Present Illness - Stated complaint Stated Complaint: HEADACHE,NAUSEA - Chief complaint Chief Complaint: General - History obtained from History obtained from: Patient, Family - History of Present Illness Timing: Today Pain level max: 6 Pain level now: 5 - Additonal information Additional information: Patient is a 61-year-old male who is brought into the emergency department by his significant other. He states that he has had intermittent headaches for several months. Is been seen by his doctor, had MRIs, CT scans. Has also had dyspepsia ongoing for several months as well, trying to taper off of Prilosec. Had a normal abdominal ultrasound about 2 weeks ago. He states he has had increasing stress over family stress with an estate. Review of Systems Constitutional: denies: Fever, Chills Cardiac: reports: Chest pain / pressure (States has burning in his chest, similar to prior episodes of heartburn. No heart history) Respiratory: denies: Dyspnea, Cough GI: reports: Nausea. denies: Abdominal Pain, Vomiting, Diarrhea Skin: denies: Rash Musculoskeletal: denies: Neck pain, Back pain Neurologic: reports: Headache (Gradual onset, holoacranial, dull, aching, throbbing.) PD PAST MEDICAL HISTORY - Past Medical History Cardiovascular: Hypertension Respiratory: None Neuro: None Endocrine/Autoimmune: None GI: GERD : None HEENT: None Musculoskeletal: Chronic back pain, Other Derm: None - Past Surgical History Past Surgical History: Yes General: Hiatal hernia repair - Present Medications Home Medications: Ambulatory Orders Medication Instructions Recorded Confirmed Famotidine [Pepcid] 20 mg PO BID #60 tablet 12/27/21 LORazepam [Ativan] 1 mg PO Q8H PRN #10 tablet 12/27/21 Omeprazole Magnesium 20 mg PO DAILY 12/27/21 12/27/21 Sucralfate [Carafate] 1 gm PO ACHS #60 tablet 12/27/21 - Allergies Allergies/Adverse Reactions: Allergies Allergy/AdvReac Type Severity Reaction Status Date / Time No Known Drug Allergies Allergy Verified 12/27/21 10:42 - Social History Does the pt smoke?: No Smoking Status: Never smoker Does the pt drink ETOH?: No Does the pt have substance abuse?: Yes - Immunizations Immunizations are current?: No - POLST Patient has POLST: No POLST Status: Full Code PD ED PE NORMAL - Vitals Vital signs reviewed: Yes - General General: Alert and oriented X 3, No acute distress - HEENT HEENT: Moist mucous membranes - Neck Neck: Supple, no meningeal sign - Cardiac Cardiac: RRR, No murmur, Strong equal pulses - Respiratory Respiratory: No respiratory distress, Clear bilaterally - Abdomen Abdomen: Soft, Non tender, Non distended - Derm Derm: Warm and dry, No rash - Extremities Extremities: No edema - Neuro Neuro: Alert and oriented X 3 - Psych Psych: Normal mood, Normal affect Results - Vitals Vitals: Vital Signs - 24 hr 12/27/21 12/27/21 10:39 11:21 Temperature 36.4 C L Heart Rate 95 89 Respiratory 16 14 Rate Blood Pressure 176/95 H 172/97 H O2 Saturation 97 97 Oxygen O2 Source Room air - EKG (time done) 1108 Rate: Rate (enter#) (1108) Rhythm: NSR [place]: Normal, Anterior hemiblock (LAFB) Intervals: Normal [place] QRS: Normal Ischemia: Normal ST segments - Labs Labs: Laboratory Tests 12/27/21 12/27/21 12/27/21 11:18 11:18 11:18 WBC 6.5 RBC 4.87 Hgb 15.3 Hct 44.8 MCV 92.0 MCH 31.4 H MCHC 34.2 RDW 13.9 Plt Count 231 MPV 10.8 Neut # (Auto) 5.3 Lymph # (Auto) 0.7 L [place] # (Auto) 0.3 Eos # (Auto) 0.0 Baso # (Auto) 0.1 Absolute Nucleated RBC 0.00 Nucleated RBC % 0.0 Sodium 135 Potassium 4.4 Chloride 95 L Carbon Dioxide 22 Anion Gap 18.0 H BUN 14 Creatinine 0.7 Estimated GFR (MDRD) 114 Glucose 85 Calcium 10.2 Total Bilirubin 1.7 H AST 37 ALT 30 Alkaline Phosphatase 63 Troponin I High Sens 5.8 Total Protein 7.6 Albumin 4.9 Globulin 2.7 Albumin/Globulin Ratio 1.8 Lipase 33 - Rads (name of study) cxr Radiology: Final report received, EMP read contemporaneously, See rad report (No acute abnormality) PD MEDICAL DECISION MAKING - ED course Complexity details: reviewed results, re-evaluated patient, considered differential (No ST elevation [place], no aortic dissection, no PE, no tension pneumothorax, no aortic aneurysm), d/w patient ED course: 61-year-old male feels much better after Ativan, Maalox and Carafate. Most of his symptoms have resolved at this time. Appears to be under a great deal of stress at home currently. We will trial him on Ativan for home. We will have him follow-up with his doctor for further care. Patient is well-appearing, nontoxic. Afebrile. A respiratory panel was sent as well in case this could be a viral syndrome. This will be followed up later today. No evidence of acute coronary syndrome. No significant electrolyte abnormalities. Patient and fam virgil counseled regarding signs and symptoms for which I believe and urgent re- evaluation would be necessary. Patient with good understanding of and agreement to plan and is comfortable going home at this time This document was made in part using voice recognition software. While efforts are made to proofread this document, sound alike and grammatical errors may occur. Departure - Departure Disposition: Home, Self Care Clinical Impression: Anxiety GERD (gastroesophageal reflux disease) Qualifiers: Esophagitis presence: with esophagitis Esophagitis bleeding: without hemorrhage Qualified Code(s): K21.00 - Gastro-esophageal reflux disease with esophagitis, without bleeding Condition: Good Instructions: ED Stress React, ED GERD Follow-Up: JUANITO VENTURA MD [Primary Care Provider] - Within 1 week Prescriptions: LORazepam [Ativan] 1 mg PO Q8H PRN #10 tablet PRN Reason: Anxiety Sucralfate [Carafate] 1 gm PO ACHS #60 tablet Famotidine [Pepcid] 20 mg PO BID #60 tablet Comments: We will trial you on Ativan for anxiety. We will also trial you on Carafate to help with your GERD. Please follow-up with your doctor for further care. Your prescriptions were sent to [facility] in [place]. Do not drive or operate heavy machinery while taking the Ativan.
[2021-12-27] MEDS ORDERED: SUCRALFATE 1 GM/10 ML UDC PO STA (11:09)
[2021-12-27] MEDS ORDERED: MAG HYDROX/AL HYDROX/SIMETH 30 ML UDC PO STA (11:09)
[2021-12-27] MEDS ORDERED: FAMOTIDINE 20 MG TABLET PO STA (11:09)
[2021-12-27] MEDS ORDERED: LORazepam 2 MG/ML VIAL IVP STA (11:09)
[2021-12-27 11:22] VITALS: BP 172/97
[2021-12-27 11:27] LABS: BASOPHILS # (AUTO) 0.1 10^3/uL (0.0-0.1); BASOPHILS % (AUTO) 0.9 %; EOSINOPHILS % (AUTO) 0.2 %; HCT - HEMATOCRIT 44.8 % (42.0-52.0); HGB - HEMOGLOBIN 15.3 g/dL (14.0-18.0); LYMPHOCYTES # (AUTO) 0.7 10^3/uL (1.5-3.5); LYMPHOCYTES % (AUTO) 11.4 %; MEAN CORPUSCULAR HEMOGLOBIN 31.4 pg (27.0-31.0); MEAN CORPUSCULAR HGB CONC 34.2 g/dL (32.0-36.0); MEAN PLATELET VOLUME 10.8 fL (7.4-11.4); MONOCYTES # (AUTO) 0.3 10^3/uL (0.0-1.0); MONOCYTES % (AUTO) 4.9 %; NEUTROPHILS # (AUTO) 5.3 10^3/uL (1.5-6.6); NEUTROPHILS % (AUTO) 82.4 %; PLT - PLATELET COUNT 231 10^3/uL (130-450); RED BLOOD COUNT 4.87 10^6/uL (4.70-6.10); RED CELL DISTRIBUTION WIDTH 13.9 % (12.0-15.0); WHITE BLOOD COUNT 6.5 x10^3/uL (4.8-10.8)
--- NOTE | 2021-12-27 11:42 | XRAY Report ---
PROCEDURE: Chest 1 View X-Ray INDICATIONS: Chest Pain TECHNIQUE: One view of the chest was acquired. COMPARISON: 10/22/2018, 10/08/2020 FINDINGS: Surgical changes and devices: None. Lungs and pleura: No pleural effusions or pneumothorax. Lungs are clear. Mediastinum: Mediastinal contours appear normal. Heart size is normal. Bones and chest wall: No suspicious bony lesions. Age-appropriate degenerative changes are seen. Overlying soft tissues appear unremarkable. IMPRESSION: No acute portable chest abnormality can be seen. Reviewed by: Terrance Santillan MD on 12/27/2021 10:40 AM ZINA Approved by: Terrance Santillan MD on 12/27/2021 10:40 AM ZINA Station ID: [id number]
[2021-12-27 11:44] LABS: ALBUMIN 4.9 g/dL (3.2-5.5); ALBUMIN/GLOBULIN RATIO 1.8 (1.0-2.2); BILIRUBIN,TOTAL 1.7 mg/dL (0.2-1.0); CALCIUM 10.2 mg/dL (8.5-10.3); CREATININE 0.7 mg/dL (0.6-1.2); POTASSIUM 4.4 mmol/L (3.5-5.0); TOTAL PROTEIN 7.6 g/dL (6.7-8.2)
[2021-12-27 13:09] LABS: B. PARAPERTUSSIS- RESP PCR PAN NOT DETECTED; B. PERTUSSIS- RESP PCR PANEL NOT DETECTED; C. PNEUMONIAE- RESP PCR PANEL NOT DETECTED; CORONAVIRUS 229E-RESP PCR NOT DETECTED; CORONAVIRUS HKU1-RESP PCR NOT DETECTED; CORONAVIRUS NL63-RESP PCR NOT DETECTED; CORONAVIRUS OC43-RESP PCR NOT DETECTED; HUMAN METAPNEUMOVIRUS NOT DETECTED; INFLUENZA A- RESP PCR PANEL NOT DETECTED; INFLUENZA B - RESP PCR PANEL NOT DETECTED; M. PNEUMONIAE- RESP PCR PANEL NOT DETECTED; PARAINFLUENZA VIRUS 1 NOT DETECTED; PARAINFLUENZA VIRUS 2 NOT DETECTED; PARAINFLUENZA VIRUS 3 NOT DETECTED; PARAINFLUENZA VIRUS 4 NOT DETECTED; RHINOVIRUS/ENTEROVIRUS NOT DETECTED; RSV- RESP PCR PANEL NOT DETECTED; SARS-CoV-2 -RESP PCR PANEL NOT DETECTED
== END 2021-12-27 12:12 | disposition home or self-care (01) ==
LOC: ED 10:34
DX: F41.9 Anxiety disorder, unspecified (principal); K21.00 Gastro-esophageal reflux disease with esophagitis, without bleeding
CPT/HCPCS: 36415; 71045; 80053; 83690; 84484; 85025; 87633; 93005; 96374; 99284; A9270; J2060

== ENCOUNTER 2022-05-21 23:06 | Emergency (ER) | payer MEDICAID ==
[2022-05-21 23:49] LABS: BASOPHILS # (AUTO) 0.1 10^3/uL (0.0-0.1); BASOPHILS % (AUTO) 0.8 %; EOSINOPHILS # (AUTO) 0.1 10^3/uL (0.0-0.7); HCT - HEMATOCRIT 43.7 % (42.0-52.0); HGB - HEMOGLOBIN 14.9 g/dL (14.0-18.0); LYMPHOCYTES # (AUTO) 1.8 10^3/uL (1.5-3.5); LYMPHOCYTES % (AUTO) 26.8 %; MEAN CORPUSCULAR HEMOGLOBIN 31.8 pg (27.0-31.0); MEAN CORPUSCULAR HGB CONC 34.1 g/dL (32.0-36.0); MEAN CORPUSCULAR VOLUME 93.2 fL (80.0-94.0); MEAN PLATELET VOLUME 11.1 fL (7.4-11.4); MONOCYTES # (AUTO) 0.7 10^3/uL (0.0-1.0); MONOCYTES % (AUTO) 10.7 %; NEUTROPHILS % (AUTO) 59.7 %; PLT - PLATELET COUNT 228 10^3/uL (130-450); RED BLOOD COUNT 4.69 10^6/uL (4.70-6.10); RED CELL DISTRIBUTION WIDTH 12.8 % (12.0-15.0); WHITE BLOOD COUNT 6.7 x10^3/uL (4.8-10.8)
[2022-05-21 23:58] LABS: ALBUMIN 4.7 g/dL (3.2-5.5); ALBUMIN/GLOBULIN RATIO 1.6 (1.0-2.2); BILIRUBIN,TOTAL 1.4 mg/dL (0.2-1.0); CALCIUM 10.1 mg/dL (8.5-10.3); CREATININE 1.2 mg/dL (0.6-1.2); POTASSIUM 3.9 mmol/L (3.5-5.0); TOTAL PROTEIN 7.7 g/dL (6.7-8.2)
--- NOTE | 2022-05-22 00:26 | ED Physician Documentation ---
PD HPI ABD PAIN - Stated complaint Stated Complaint: ABD PX - Chief complaint Chief Complaint: Abd Pain - History obtained from History obtained from: Patient - Additional information Additional information: The patient comes to the emergency department chief complaint of right upper quadrant abdominal pain that started about 2 hours after eating this evening. Patient states that he has a history of having an elevated bilirubin and was told that he "might" have gallstones, but then he had an ultrasound that was negative. The patient has been seen by his primary doctor at that time and has a history of alcohol abuse for a number of years. However, he quit about 5 years ago. The patient states he is really been trying to take care of his health and actually has eaten very lean diet since his initial bilirubin a couple of months ago. Patient states his symptoms have been a lot better but that tonight, he ate fried chicken and had severe right upper quadrant pain a couple of hours later. He states that he did not have any nausea but that the pain got so bad he finally decided to come to the emergency department. He is otherwise fairly healthy. He states that the pain has abated quite a bit and is only minimal now. He has not had any other episodes like this since the initial one that led to his bilirubin being checked. Review of Systems Ten Systems: 10 systems reviewed and negative Constitutional: reports: Reviewed and negative Eyes: reports: Reviewed and negative Ears: reports: Reviewed and negative Nose: reports: Reviewed and negative Throat: reports: Reviewed and negative Cardiac: reports: Reviewed and negative Respiratory: reports: Reviewed and negative GI: reports: Abdominal Pain : reports: Reviewed and negative Skin: reports: Reviewed and negative Musculoskeletal: reports: Reviewed and negative Neurologic: reports: Reviewed and negative Psychiatric: reports: Reviewed and negative Endocrine: reports: Reviewed and negative Immunocompromised: reports: Reviewed and negative PD PAST MEDICAL HISTORY - Past Medical History Cardiovascular: Hypertension Respiratory: None Neuro: None Endocrine/Autoimmune: None GI: GERD : None HEENT: None Psych: Anxiety Musculoskeletal: Chronic back pain, Other Derm: None - Past Surgical History Past Surgical History: Yes General: Hiatal hernia repair - Present Medications Home Medications: Ambulatory Orders Medication Instructions Recorded Confirmed Famotidine [Pepcid] 20 mg PO BID #60 tablet 12/27/21 LORazepam [Ativan] 1 mg PO Q8H PRN #10 tablet 12/27/21 Omeprazole Magnesium 20 mg PO DAILY 12/27/21 12/27/21 Sucralfate [Carafate] 1 gm PO ACHS #60 tablet 12/27/21 - Allergies Allergies/Adverse Reactions: Allergies Allergy/AdvReac Type Severity Reaction Status Date / Time No Known Drug Allergies Allergy Verified 05/21/22 23:11 - Social History Does the pt smoke?: No Smoking Status: Never smoker Does the pt drink ETOH?: No Does the pt have substance abuse?: No - Immunizations Immunizations are current?: Yes - POLST Patient has POLST: No POLST Status: Full Code PD ED PE NORMAL - Vitals Vital signs reviewed: Yes - General General: Alert and oriented X 3, No acute distress, Well developed/nourished - HEENT HEENT: Atraumatic, PERRL, EOMI, Moist mucous membranes - Neck Neck: Supple, no meningeal sign - Cardiac Cardiac: RRR, No murmur, Strong equal pulses - Respiratory Respiratory: No respiratory distress, Clear bilaterally - Abdomen Abdomen: Soft, Non distended, Other (Mild right upper quadrant tenderness, no rebound or guarding.) - Derm Derm: Normal color, Warm and dry, No rash - Extremities Extremities: No deformity, No edema - Neuro Neuro: Alert and oriented X 3, motorcycle mechanic 2-12 intact, Normal speech - Psych Psych: Normal mood, Normal affect Results - Vitals Vitals: Vital Signs - 24 hr 05/21/22 05/22/22 23:11 00:53 Temperature 36.5 C 36.5 C Heart Rate 77 76 Respiratory 16 16 Rate Blood Pressure 150/90 H 133/76 H O2 Saturation 99 98 Oxygen O2 Source Room air - Labs Labs: Laboratory Tests 05/21/22 05/21/22 23:25 23:25 WBC 6.7 RBC 4.69 L Hgb 14.9 Hct 43.7 MCV 93.2 MCH 31.8 H MCHC 34.1 RDW 12.8 Plt Count 228 MPV 11.1 Neut # (Auto) 4.0 Lymph # (Auto) 1.8 [place] # (Auto) 0.7 Eos # (Auto) 0.1 Baso # (Auto) 0.1 Absolute Nucleated RBC 0.00 Nucleated RBC % 0.0 Sodium 138 Potassium 3.9 Chloride 100 L Carbon Dioxide 29 Anion Gap 9.0 BUN 21 H Creatinine 1.2 Estimated GFR (MDRD) 61 L Glucose 114 H Calcium 10.1 Total Bilirubin 1.4 H AST 17 ALT 18 Alkaline Phosphatase 62 Total Protein 7.7 Albumin 4.7 Globulin 3.0 Albumin/Globulin Ratio 1.6 Lipase 40 - Rads (name of study) Abdominal ultrasound Radiology: Prelim report reviewed (Acalculus gallbladder with wall upper limits at 3.8 mm. Common bile duct nondilated.), See rad report PD MEDICAL DECISION MAKING - ED course Complexity details: reviewed results, re-evaluated patient, considered differential, d/w patient ED course: The patient was worked up with laboratory studies which showed a bilirubin of 1.4 but otherwise unremarkable. Ultrasound showed a gallbladder wall that was on the upper limits of normal but without calculi. The patient was largely asymptomatic at this point in time, and I felt he was stable for discharge home. I discussed with him the importance of following up with his doctor for further evaluation of the ongoing elevated bilirubin and the occasional episodes of right upper quadrant pain. Departure - Departure Disposition: 01 Home, Self Care Clinical Impression: Abdominal pain Qualifiers: Abdominal location: right upper quadrant Qualified Code(s): R10.11 - Right upper quadrant pain Condition: Stable Instructions: ED Abdominal Pain Unkn Cause Male Comments: Your bilirubin is slightly elevated tonight but the rest of your labs actually look fairly good. Your ultrasound shows a mildly dilated gallbladder but no stones. It is important that you follow-up with your primary doctor to further discuss the elevated bilirubin in the setting of the episodes of pain you have been having. Although you do not have stones, it may be advisable for you to follow-up with concrete pipe machine operator for further evaluation and possibly, more specialized testing. Please discuss this with your doctor when you see him or her next to get specialty follow-up set up. Discharge Date/Time: 05/22/22 00:53
--- NOTE | 2022-05-22 00:43 | Ultrasound Report ---
PROCEDURE: Abdomen Limited INDICATIONS: RUQ pain TECHNIQUE: Real-time focused scanning was performed of the abdomen, with image documentation. COMPARISON: Ultrasound abdomen 11/23/2021 FINDINGS: The liver is mildly increased in echogenicity suggestive of fatty infiltration. There is patent hepat opedal flow within the main portal vein. The gallbladder demonstrates no gallstones, definite gallbladder wall thickening, or pericholecystic fluid. No intra or extra hepatic biliary ductal dilatation. The visualized pancreas appears unremarkable sonographically. Pancreatic tail was not well seen. Right kidney measures 10.2 cm. No hydronephrosis. There is trace perinephric fluid. IMPRESSION: 1. No evidence of cholelithiasis or cholecystitis. 2. Increased hepatic echogenicity suggestive of hepatic steatosis. 3. Nonspecific trace right perinephric free fluid without hydronephrosis. Reviewed by: Jay Huston MD on 05/22/2022 12:42 AM PDT Approved by: Jay Huston MD on 05/22/2022 12:42 AM PDT Station ID: [id number]
[2022-05-22 00:54] VITALS: BP 133/76
== END 2022-05-22 00:53 | disposition home or self-care (01) ==
LOC: ED 23:06
DX: R10.11 Right upper quadrant pain (principal)
CPT/HCPCS: 36415; 80053; 83690; 85025; 99282; 99284

== ENCOUNTER 2022-10-01 07:24 | Outpatient (CLI) | payer MEDICAID ==
[2022-10-01 14:20] LABS: ALBUMIN 4.4 g/dL (3.2-5.5); ALBUMIN/GLOBULIN RATIO 1.5 (1.0-2.2); BASOPHILS # (AUTO) 0.1 10^3/uL (0.0-0.1); BASOPHILS % (AUTO) 1.4 %; BILIRUBIN,TOTAL 1.4 mg/dL (0.2-1.0); CALCIUM 9.3 mg/dL (8.5-10.3); CREATININE 0.8 mg/dL (0.6-1.2); EOSINOPHILS # (AUTO) 0.1 10^3/uL (0.0-0.7); EOSINOPHILS % (AUTO) 1.9 %; HCT - HEMATOCRIT 48.4 % (42.0-52.0); HGB - HEMOGLOBIN 15.8 g/dL (14.0-18.0); LYMPHOCYTES # (AUTO) 1.6 10^3/uL (1.5-3.5); LYMPHOCYTES % (AUTO) 26.4 %; MEAN CORPUSCULAR HEMOGLOBIN 30.9 pg (27.0-31.0); MEAN CORPUSCULAR HGB CONC 32.6 g/dL (32.0-36.0); MEAN CORPUSCULAR VOLUME 94.7 fL (80.0-94.0); MONOCYTES # (AUTO) 0.5 10^3/uL (0.0-1.0); MONOCYTES % (AUTO) 8.5 %; NEUTROPHILS # (AUTO) 3.6 10^3/uL (1.5-6.6); NEUTROPHILS % (AUTO) 61.6 %; PLT - PLATELET COUNT 245 10^3/uL (130-450); POTASSIUM 4.3 mmol/L (3.5-5.0); RED BLOOD COUNT 5.11 10^6/uL (4.70-6.10); RED CELL DISTRIBUTION WIDTH 13.3 % (12.0-15.0); TOTAL PROTEIN 7.3 g/dL (6.7-8.2); WHITE BLOOD COUNT 5.9 x10^3/uL (4.8-10.8)
== END 2022-10-01 07:25 | disposition home or self-care (01) ==
LOC: LAB.S 07:24
PROVIDERS: ATTEND Internal Medicine
DX: I10 Essential (primary) hypertension (principal); E29.1 Testicular hypofunction
CPT/HCPCS: 36415; 80053; 84153; 84403; 85025

== ENCOUNTER 2022-11-06 14:49 | Outpatient (CLI) | payer MEDICAID | END 2022-11-06 14:50 | disposition home or self-care (01) | LOC: LAB.S 14:49 | PROVIDERS: ATTEND Registered Nurse | DX: R42 Dizziness and giddiness (principal) | CPT/HCPCS: 36415; 82306; 82607; 83090 ==

== ENCOUNTER 2023-10-27 07:13 | Outpatient (CLI) | payer MEDICAID ==
[2023-10-27 14:32] LABS: BASOPHILS % (AUTO) 0.8 %; EOSINOPHILS # (AUTO) 0.1 10^3/uL (0.0-0.7); HCT - HEMATOCRIT 46.6 % (42.0-52.0); LYMPHOCYTES # (AUTO) 1.2 10^3/uL (1.5-3.5); LYMPHOCYTES % (AUTO) 23.7 %; MEAN CORPUSCULAR HEMOGLOBIN 29.6 pg (27.0-31.0); MEAN CORPUSCULAR HGB CONC 32.2 g/dL (32.0-36.0); MEAN CORPUSCULAR VOLUME 92.1 fL (80.0-94.0); MEAN PLATELET VOLUME 11.4 fL (7.4-11.4); MONOCYTES # (AUTO) 0.5 10^3/uL (0.0-1.0); MONOCYTES % (AUTO) 10.3 %; NEUTROPHILS # (AUTO) 3.1 10^3/uL (1.5-6.6); PLT - PLATELET COUNT 227 10^3/uL (130-450); RED BLOOD COUNT 5.06 10^6/uL (4.70-6.10); RED CELL DISTRIBUTION WIDTH 14.4 % (12.0-15.0)
[2023-10-27 16:09] LABS: ALBUMIN 4.5 g/dL (3.2-5.5); ALBUMIN/GLOBULIN RATIO 1.7 (1.0-2.2); ALKALINE PHOSPHATASE 51 IU/L (42-121); ALT ALANINE AMINOTRANSFERASE 15 IU/L (10-60); AST ASPARTATE AMINOTRANSFERASE 17 IU/L (10-42); BILIRUBIN,TOTAL 1.2 mg/dL (0.2-1.0); BUN - BLOOD UREA NITROGEN 16 mg/dL (6-20); CALCIUM 9.6 mg/dL (8.5-10.3); CARBON DIOXIDE - CO2 29 mmol/L (21-32); CHLORIDE 99 mmol/L (101-111); CHOLESTEROL 197 mg/dL; CREATININE 0.9 mg/dL (0.6-1.3); GFR - MDRD 85 (>89); GLUCOSE 114 mg/dL (74-104); HDL CHOLESTEROL 66 mg/dL; LDL CHOLESTEROL,CALCULATED 121 mg/dL; LDL/HDL RATIO 1.8 (<3.6); POTASSIUM 4.7 mmol/L (3.5-4.5); SODIUM 133 mmol/L (135-145); TOTAL PROTEIN 7.1 g/dL (6.4-8.9); TRIGLYCERIDES 48 mg/dL (48-352); VLDL CHOLESTEROL 10 mg/dL
[2023-10-29 16:08] LABS: FREE TESTOSTERONE(DIRECT) 9.8 pg/mL (6.6-18.1)
== END 2023-10-27 07:14 | disposition home or self-care (01) ==
LOC: LAB.S 07:13
PROVIDERS: ATTEND Internal Medicine
DX: E29.1 Testicular hypofunction (principal); Z13.220 Encounter for screening for lipoid disorders; E53.8 Deficiency of other specified B group vitamins
CPT/HCPCS: 36415; 80053; 80061; 82607; 83721; 84402; 84403; 85025

== ENCOUNTER 2024-03-17 07:00 | Outpatient (CLI) | payer MEDICAID, MEDICARE ==
--- NOTE | 2024-03-17 08:11 | XRAY Report ---
PROCEDURE: Chest 2V INDICATIONS: COUGH/CHEST CONGESTION TECHNIQUE: 2 views of the chest were acquired. COMPARISON: 12/27/2021. FINDINGS: Surgical changes and devices: None. Lungs and pleura: No pleural effusions or pneumothorax. Diffuse interstitial change. Question mild i nterstitial pulmonary edema.. Mediastinum: Mediastinal contours appear normal. Heart size is normal. Bones and chest wall: No suspicious bony lesions. Overlying soft tissues appear unremarkable. IMPRESSION: Diffuse interstitial change. Question mild congestive heart failure Reviewed by: Desean Adams MD on 03/17/2024 8:10 AM PDT Approved by: Desean Adams MD on 03/17/2024 8:10 AM PDT Station ID: [id number]
== END 2024-03-17 23:59 | disposition home or self-care (01) ==
LOC: DI.S 07:00
PROVIDERS: ATTEND Physician Assistant Medical
DX: R09.3 Abnormal sputum (principal); R09.89 Other specified symptoms and signs involving the circulatory and respiratory systems; R91.8 Other nonspecific abnormal finding of lung field

== ENCOUNTER 2024-03-27 09:41 | Outpatient (CLI) | payer MEDICARE ==
--- NOTE | 2024-03-27 12:28 | MRI Report ---
Cervical Spine WO: 03/27/2024 9:53 AM PDT CLINICAL HISTORY: 63 years of age, Male, CERVICAL RADICULOPATHY. COMPARISON: None. PROCEDURE COMMENTS: Multiplanar multisequence MR of the cervical spine was obtained without intraveno us contrast. FINDINGS: Localizer image: No visible abnormality. Alignment: Mild retrolisthesis of C4 on C5. Mild retrolisthesis of C6 on C7. Bone marrow: Normal for age. Vertebrae: Vertebral body heights are well-maintained. Intervertebral discs:Multilevel disc desiccation and disc bulge. Cord: No abnormal signal. C2-C3: Posterior disc osteophyte complex. No central canal stenosis. No right neuroforaminal stenosis . No left neuroforaminal stenosis. C3-C4: Posterior disc osteophyte complex. Mild central canal stenosis. No right neuroforaminal stenos is. No left neuroforaminal stenosis. C4-C5: Posterior disc osteophyte complex. Mild central canal stenosis. Mild right neuroforaminal sten osis. Mild left neuroforaminal stenosis. C5-C6: Posterior disc identified complex. Mild central canal stenosis. Mild right neuroforaminal sten osis. Moderate left neuroforaminal stenosis. C6-C7: Posterior disc osteophyte complex. Mild central canal stenosis. Mild bilateral facet arthropat hy. No right neuroforaminal stenosis. Severe left neuroforaminal stenosis. C7-T1: No central canal stenosis. No right neuroforaminal stenosis. No left neuroforaminal stenosis. Extra-vertebral soft tissues: Unremarkable IMPRESSION: 1.Multilevel degenerative changes cervical spine, most pronounced at C6-7, where there is mild centra l canal stenosis and severe left neuroforaminal stenosis. Reviewed by: Chantal Narvaez MD on 03/27/2024 12:26 PM PDT Approved by: Chantal Narvaez MD on 03/27/2024 12:26 PM PDT Station ID: [id number]
== END 2024-03-27 09:42 | disposition home or self-care (01) ==
LOC: DI 09:41
PROVIDERS: ATTEND Physician Assistant Medical
DX: M47.812 Spondylosis without myelopathy or radiculopathy, cervical region (principal); M48.02 Spinal stenosis, cervical region

== ENCOUNTER 2024-05-29 21:59 | Emergency (ER) | payer MEDICARE ==
[2024-05-29 22:11] VITALS: BP 170/90; O2SAT 100
== END 2024-05-29 23:05 | disposition left against medical advice (07) ==
LOC: ED 21:59
DX: Z53.21 Procedure and treatment not carried out due to patient leaving prior to being seen by health care provider (principal)
CPT/HCPCS: 80053; 83690; 85025

== ENCOUNTER 2024-06-09 07:06 | Outpatient (CLI) | payer MEDICARE ==
[2024-06-09 15:09] LABS: BASOPHILS # (AUTO) 0.1 10^3/uL (0.0-0.1); EOSINOPHILS # (AUTO) 0.1 10^3/uL (0.0-0.7); EOSINOPHILS % (AUTO) 2.3 %; HCT - HEMATOCRIT 53.3 % (42.0-52.0); HGB - HEMOGLOBIN 17.2 g/dL (14.0-18.0); LYMPHOCYTES # (AUTO) 1.2 10^3/uL (1.5-3.5); LYMPHOCYTES % (AUTO) 23.2 %; MEAN CORPUSCULAR HEMOGLOBIN 30.9 pg (27.0-31.0); MEAN CORPUSCULAR HGB CONC 32.3 g/dL (32.0-36.0); MEAN CORPUSCULAR VOLUME 95.7 fL (80.0-94.0); MEAN PLATELET VOLUME 11.5 fL (7.4-11.4); MONOCYTES # (AUTO) 0.6 10^3/uL (0.0-1.0); MONOCYTES % (AUTO) 10.7 %; NEUTROPHILS # (AUTO) 3.3 10^3/uL (1.5-6.6); NEUTROPHILS % (AUTO) 62.6 %; PLT - PLATELET COUNT 230 10^3/uL (130-450); RED BLOOD COUNT 5.57 10^6/uL (4.70-6.10); RED CELL DISTRIBUTION WIDTH 14.6 % (12.0-15.0); WHITE BLOOD COUNT 5.2 x10^3/uL (4.8-10.8)
[2024-06-09 15:43] LABS: ALBUMIN 4.8 g/dL (3.2-5.5); ALBUMIN/GLOBULIN RATIO 1.7 (1.0-2.2); BILIRUBIN,TOTAL 1.6 mg/dL (0.2-1.0); CALCIUM 9.9 mg/dL (8.5-10.3); CREATININE 0.9 mg/dL (0.6-1.3); CRP - C-REACTIVE PROTEIN 0.5 mg/dL (<0.5); POTASSIUM 4.4 mmol/L (3.5-4.5); TOTAL PROTEIN 7.6 g/dL (6.4-8.9)
== END 2024-06-09 07:07 | disposition home or self-care (01) ==
LOC: LAB.S 07:06
PROVIDERS: ATTEND Registered Nurse
DX: K80.20 Calculus of gallbladder without cholecystitis without obstruction (principal); R10.9 Unspecified abdominal pain; R17 Unspecified jaundice; G89.29 Other chronic pain
CPT/HCPCS: 36415; 80053; 83690; 85025; 86140

== ENCOUNTER 2024-06-09 23:55 | Outpatient (CLI) | payer MEDICARE | END 2024-06-09 23:59 | disposition critical access hospital (66) | LOC: EMS 23:55 | DX: R10.11 Right upper quadrant pain (principal); R11.2 Nausea with vomiting, unspecified; R14.2 Eructation | CPT/HCPCS: A0425; A0427 ==

== ENCOUNTER 2024-06-10 00:28 | Day surgery (SDC) | payer MEDICARE ==
--- NOTE | 2024-06-10 00:39 | ED Physician Documentation ---
PD HPI ABD PAIN - Stated complaint Stated Complaint: L SIDE ABD PX - Chief complaint Chief Complaint: Abd Pain - History obtained from History obtained from: Patient, EMS - Additional information Additional information: 64-year-old male with history of hypertension presents by EMS from home for several hours of right upper quadrant abdominal pain with nausea. Patient states that he has been told in the past that he has gallstones and has had intermittent flareups over the last several months, but his pain has always resolved on its own. He states that he was never told to follow-up with a gener al surgeon. This evening pain returned to his right upper quadrant and did not improve with time, so he called 911 for assessment. Review of Systems Constitutional: denies: Fever, Chills Cardiac: denies: Chest pain / pressure, Palpitations, Calf pain Respiratory: denies: Dyspnea, Cough, Wheezing GI: reports: Abdominal Pain, Nausea. denies: Vomiting, Constipation, Diarrhea PD PAST MEDICAL HISTORY - Past Medical History Cardiovascular: Hypertension Respiratory: None Neuro: None Endocrine/Autoimmune: None GI: GERD, Other : None HEENT: None Psych: Anxiety Musculoskeletal: Chronic back pain, Other Derm: None - Past Surgical History Past Surgical History: Yes General: Hiatal hernia repair - Present Medications Home Medications: Ambulatory Orders Medication Instructions Recorded Confirmed Omeprazole Magnesium 5 mg PO DAILY 12/27/21 06/10/24 Losartan Potassium 25 mg PO DAILY 06/10/24 06/10/24 Ondansetron Odt [Zofran Odt] 4 mg PO Q6H PRN #10 tablet 06/10/24 Testosterone Cypionate 0.5 ml IM OAW 06/10/24 06/10/24 traMADol [Ultram] 50 mg PO Q6H PRN #20 tablet 06/10/24 ursodioL [Actigall] 300 mg PO BID 06/10/24 06/10/24 - Allergies Allergies/Adverse Reactions: Allergies Allergy/AdvReac Type Severity Reaction Status Date / Time No Known Drug Allergies Allergy Verified 06/10/24 00:29 - Social History Does the pt smoke?: No Smoking Status: Never smoker Does the pt drink ETOH?: No Does the pt have substance abuse?: No - Immunizations Immunizations are current?: Yes - POLST Patient has POLST: No POLST Status: Full Code PD ED PE NORMAL - Vitals Vital signs reviewed: Yes - General General: Alert and oriented X 3, No acute distress, Well developed/nourished - Cardiac Cardiac: RRR, Strong equal pulses - Respiratory Respiratory: No respiratory distress, Clear bilaterally - Abdomen Abdomen: Soft, Non distended, Other (RUQ tenderness to palpation) - Derm Derm: Normal color, Warm and dry, No rash - Extremities Extremities: No deformity, No tenderness to palpate, Normal ROM s pain, No edema - Neuro Neuro: Alert and oriented X 3, ore storage drier 2-12 intact, No motor deficit, Normal speech - Psych Psych: Normal mood, Normal affect Results - Vitals Vitals: Vital Signs - 24 hr 06/10/24 06/10/24 06/10/24 00:29 02:34 04:00 Temperature 36.4 C L Heart Rate 78 81 74 Respiratory 18 16 16 Rate Blood Pressure 204/128 H 153/94 H 155/97 H O2 Saturation 100 98 94 If not protocol : Oxygen Flow, liters/minute 06/10/24 06/10/24 06/10/24 06:00 07:32 08:43 Temperature 36.4 C L Heart Rate 82 80 79 Respiratory 16 16 16 Rate Blood Pressure 155/97 H 133/84 H 136/86 H O2 Saturation 96 96 99 If not protocol : Oxygen Flow, liters/minute 06/10/24 06/10/24 06/10/24 09:35 10:32 12:26 Temperature 36.8 C Heart Rate 67 73 79 Respiratory 16 18 16 Rate Blood Pressure 124/77 133/89 H 113/78 O2 Saturation 99 97 100 If not protocol 2 : Oxygen Flow, liters/minute 06/10/24 06/10/24 06/10/24 12:29 12:34 12:39 Temperature 36.7 C Heart Rate 75 72 71 Respiratory 9 L 12 13 Rate Blood Pressure 109/73 107/69 107/70 O2 Saturation 100 100 100 If not protocol : Oxygen Flow, liters/minute 06/10/24 06/10/24 06/10/24 12:45 12:50 12:54 Temperature Heart Rate 69 69 70 Respiratory 12 13 11 L Rate Blood Pressure 104/74 107/68 107/78 O2 Saturation 100 100 100 If not protocol : Oxygen Flow, liters/minute 06/10/24 06/10/24 06/10/24 13:00 13:09 13:16 Temperature 36.8 C 36.8 C Heart Rate 68 70 77 Respiratory 10 L 14 23 Rate Blood Pressure 112/70 124/80 118/80 O2 Saturation 100 100 99 If not protocol : Oxygen Flow, liters/minute 06/10/24 06/10/24 06/10/24 13:25 13:41 14:17 Temperature 36.7 C 36.6 C Heart Rate 72 66 73 Respiratory 18 16 16 Rate Blood Pressure 123/79 116/75 136/85 H O2 Saturation 98 98 98 If not protocol : Oxygen Flow, liters/minute 06/10/24 14:49 Temperature 36.4 C L Heart Rate 78 Respiratory 18 Rate Blood Pressure 131/83 H O2 Saturation 97 If not protocol : Oxygen Flow, liters/minute Oxygen O2 Source Nasal cannula - Labs Labs: Laboratory Tests 06/10/24 06/10/24 06/10/24 00:36 00:36 00:49 WBC 9.4 RBC 5.15 Hgb 16.3 Hct 47.6 MCV 92.4 MCH 31.7 H MCHC 34.2 RDW 14.2 Plt Count 220 MPV 10.6 Neut # (Auto) 7.8 H Lymph # (Auto) 0.9 L [place] # (Auto) 0.5 Eos # (Auto) 0.0 Baso # (Auto) 0.1 Absolute Nucleated RBC 0.00 Total Counted Band Neuts % (Manual) Reactive Lymphs % (Man) Abnorm Lymph % (Manual) Nucleated RBC % 0.0 Neutrophils # (Manual) Lymphocytes # (Manual) Monocytes # (Manual) Eosinophils # (Manual) Basophils # (Manual) Differential Comment Manual Slide Review WBC Morphology Platelet Estimate Platelet Morphology RBC Morph Micro Appear PT 11.8 INR 1.1 Sodium 134 L Potassium 3.8 Chloride 92 L Carbon Dioxide 28 Anion Gap 14.0 H BUN 12 Creatinine 1.1 Estimated GFR (MDRD) 67 L Glucose 113 H Calcium 10.3 Total Bilirubin 1.5 H AST 18 ALT 12 Alkaline Phosphatase 45 Total Protein 7.5 Albumin 4.7 Globulin 2.8 Albumin/Globulin Ratio 1.7 Lipase 28 06/10/24 06/10/24 06:39 06:39 WBC 11.0 H RBC 5.27 Hgb 16.4 Hct 49.5 MCV 93.9 MCH 31.1 H MCHC 33.1 RDW 14.2 Plt Count 210 MPV 10.6 Neut # (Auto) Not Reportable Lymph # (Auto) Not Reportable [place] # (Auto) Not Reportable Eos # (Auto) Not Reportable Baso # (Auto) Not Reportable Absolute Nucleated RBC Not Reportable Total Counted 100 Band Neuts % (Manual) 3 Reactive Lymphs % (Man) 4 Abnorm Lymph % (Manual) 0 Nucleated RBC % Not Reportable Neutrophils # (Manual) 9.0 H Lymphocytes # (Manual) 0.9 L Monocytes # (Manual) 1.1 H Eosinophils # (Manual) 0.0 Basophils # (Manual) 0.0 Differential Comment MANUAL DIFFERENTIAL Manual Slide Review Indicated WBC Morphology 1+ REACTIVE LYMPHS Platelet Estimate NORMAL (130-450,000) Platelet Morphology NORMAL APPEARANCE RBC Morph Micro Appear NORMAL APPEARANCE PT INR Sodium 133 L Potassium 5.0 H Chloride 96 L Carbon Dioxide 29 Anion Gap 8.0 BUN 8 Creatinine 1.0 Estimated GFR (MDRD) 75 L Glucose 103 Calcium 9.2 Total Bilirubin 1.3 H AST 18 ALT 11 Alkaline Phosphatase 45 Total Protein 7.1 Albumin 4.4 Globulin 2.7 Albumin/Globulin Ratio 1.6 Lipase PD Medical Decision Making - ED course Complexity details: reviewed old records, reviewed results, re-evaluated patient, considered differential, d/w patient ED course: Right upper quadrant abdominal pain in patient with history of gallstones. Abdomen soft, patient has isolated tenderness in his right upper quadrant without rebound or guarding. Pain medications, laboratory work, CT imaging ordered. Laboratory work reviewed, normal white blood cell count, T. bili is elevated at 1.5, other liver enzymes within normal limits. CT of the abdomen and pelvis with contrast reviewed, patient has distended gallbladder. An incidental finding made of ulcer in the lower abdominal aorta with thrombus. Report mention possible penetrating ulcer, however patient has no symptoms in this area and without peritoneal signs and normal hemoglobin I have very low suspicion for acute pathology at this time and believe this is likely to be incidental. We do not currently have ultrasound imaging at this time, an ultrasound was ordered for 7 AM. Since patient is waiting here until 7 AM and angio of the abdomen and pelvis was ordered for further assessment of this abdominal aortic finding. Patient informed of all lab and imaging findings, he is in agreement with waiting until the morning for ultrasound to become available. CT angio reviewed, no significant change in report of aortic thrombus. Again I believe this to be an incidental finding as patient has no pain or symptoms in his lower abdomen, his symptoms are isolated to the right upper quadrant. Pending ultrasound, care patient signed out to Dr. Joseph at 0700 Departure - Departure Disposition: ED Transfer to [facility] Condition: Good Discharge Date/Time: 06/10/24 10:38
[2024-06-10 00:43] LABS: BASOPHILS # (AUTO) 0.1 10^3/uL (0.0-0.1); BASOPHILS % (AUTO) 0.7 %; EOSINOPHILS % (AUTO) 0.2 %; HCT - HEMATOCRIT 47.6 % (42.0-52.0); HGB - HEMOGLOBIN 16.3 g/dL (14.0-18.0); LYMPHOCYTES # (AUTO) 0.9 10^3/uL (1.5-3.5); LYMPHOCYTES % (AUTO) 9.1 %; MEAN CORPUSCULAR HEMOGLOBIN 31.7 pg (27.0-31.0); MEAN CORPUSCULAR HGB CONC 34.2 g/dL (32.0-36.0); MEAN CORPUSCULAR VOLUME 92.4 fL (80.0-94.0); MEAN PLATELET VOLUME 10.6 fL (7.4-11.4); MONOCYTES # (AUTO) 0.5 10^3/uL (0.0-1.0); MONOCYTES % (AUTO) 5.8 %; NEUTROPHILS # (AUTO) 7.8 10^3/uL (1.5-6.6); NEUTROPHILS % (AUTO) 83.9 %; PLT - PLATELET COUNT 220 10^3/uL (130-450); RED BLOOD COUNT 5.15 10^6/uL (4.70-6.10); RED CELL DISTRIBUTION WIDTH 14.2 % (12.0-15.0); WHITE BLOOD COUNT 9.4 x10^3/uL (4.8-10.8)
[2024-06-10] MEDS ORDERED: iohexoL-300 100 ML VIAL ONE ×2 (00:46→03:05)
[2024-06-10 00:57] LABS: INR 1.1 (0.8-1.2); PT - PROTHROMBIN TIME 11.8 secs (9.9-12.6)
[2024-06-10 00:58] LABS: ALBUMIN 4.7 g/dL (3.2-5.5); ALBUMIN/GLOBULIN RATIO 1.7 (1.0-2.2); BILIRUBIN,TOTAL 1.5 mg/dL (0.2-1.0); CALCIUM 10.3 mg/dL (8.5-10.3); CREATININE 1.1 mg/dL (0.6-1.3); POTASSIUM 3.8 mmol/L (3.5-4.5); TOTAL PROTEIN 7.5 g/dL (6.4-8.9)
[2024-06-10] MEDS: MORPHINE 2 MG/ML CARPUJECT IVP STA (01:02)
[2024-06-10] MEDS: SODIUM CHLORIDE 0.9% 1,000 ML IV STA ×2 (01:03→03:07)
--- NOTE | 2024-06-10 01:50 | CT Report ---
PROCEDURE: Abdomen/Pelvis W INDICATIONS: ruq abd pain CONTRAST: 100 ML OMNI 300 TECHNIQUE: After the administration of intravenous contrast, a CT scan of the abdomen and pelvis was performed. Images were recorded and evaluated at appropriate window settings. Reformats: coronal and sagittal. F or radiation dose reduction, the following was used: automated exposure control, adjustment of mA and /or kV according to patient size. COMPARISON: 05/21/2022 ultrasound FINDINGS: Image quality: Diagnostic Lower chest: Basal atelectasis. No pleural effusions Mild nonspecific distal esophageal wall thickening and small hiatal hernia Liver: Subcentimeter lesions are too small characterize, usually cysts or hemangiomas Gallbladder and biliary system: Distended gallbladder with mild pericholecystic edema. No pathologic biliary dilation Pancreas: No ductal dilation Possible pancreas divisum. Spleen: Nonenlarged Adrenals: No discrete nodules Kidneys: No solid mass or hydronephrosis Vessels and lymph nodes: Main portal vein is patent. No abdominal aortic aneurysm. No pathologic lymp h nodes by size criteria. There is a possible penetrating ulcer with laminar thrombus in the posterio r distal aorta measuring 8 mm in thickness (/). Bowel and peritoneum: No evidence of small bowel obstruction. Fecal loading is mild to moderate. Ther e are colonic diverticula. The appendix is nondilated. Body wall: Unremarkable Pelvis: Bladder is distended. Heterogeneous enhancement of the prostate is noted, not well assessed o n CT. Consider correlation with PSA and possible MRI Bones: There are degenerative changes. IMPRESSION: Distended gallbladder. Consider ultrasound in the setting of right upper quadrant pain. Nondilated appendix. No small bowel obstruction. Mild to moderate fecal loading. Colonic diverticula are seen, without CT signs of acute inflammation. Possible penetrating ulcer with laminar thrombus in the posterior distal aorta measures 8 mm in thick ness. Correlate with any symptoms. This is of uncertain age. Consider follow-up arteriogram at clinic al discretion. Overall aortic diameter is nonaneurysmal. Other findings above. Reviewed by: Lev Jarquin MD on 06/10/2024 1:49 AM PDT Approved by: Lev Jarquin MD on 06/10/2024 1:49 AM PDT Station ID: [id number]
[2024-06-10] MEDS: KETOROLAC 15 MG/ML VIAL IVP STA ×2 (01:57→09:02)
[2024-06-10] MEDS: iohexoL-300 100 ML VIAL IVP ONE (02:04)
[2024-06-10] MEDS: HYDROmorphone 1 MG/ML CARPUJECT IVP STA ×3 (03:07→09:06)
[2024-06-10 06:51] LABS: BASOPHILS % (AUTO) 0.5 %; HCT - HEMATOCRIT 49.5 % (42.0-52.0); HGB - HEMOGLOBIN 16.4 g/dL (14.0-18.0); LYMPHOCYTES % (AUTO) 6.3 %; MEAN CORPUSCULAR HEMOGLOBIN 31.1 pg (27.0-31.0); MEAN CORPUSCULAR HGB CONC 33.1 g/dL (32.0-36.0); MEAN CORPUSCULAR VOLUME 93.9 fL (80.0-94.0); MEAN PLATELET VOLUME 10.6 fL (7.4-11.4); MONOCYTES % (AUTO) 7.2 %; NEUTROPHILS % (AUTO) 85.8 %; PLT - PLATELET COUNT 210 10^3/uL (130-450); RED BLOOD COUNT 5.27 10^6/uL (4.70-6.10); RED CELL DISTRIBUTION WIDTH 14.2 % (12.0-15.0)
[2024-06-10 06:56] LABS: SLIDE REVIEW? Indicated
[2024-06-10 06:57] LABS: ABNORMAL LYMPHS % (MANUAL) 0 %
[2024-06-10 07:04] LABS: ALBUMIN 4.4 g/dL (3.2-5.5); ALBUMIN/GLOBULIN RATIO 1.6 (1.0-2.2); BILIRUBIN,TOTAL 1.3 mg/dL (0.2-1.0); CALCIUM 9.2 mg/dL (8.5-10.3); TOTAL PROTEIN 7.1 g/dL (6.4-8.9)
--- NOTE | 2024-06-10 07:27 | ED Physician Documentation ---
ED Addendum - Addendum Addendum: 06/10/24 07:26 Care turned over to me from Dr. Rivera at 7 AM shift change. Briefly this is a 64-year-old gentleman with hx HTN on losartan who came in last night for right upper quadrant pain. He has known gallstones and has had intermittent flareups especially a couple hours after eating since beginning of the year he tells me. He was seen and examined at the bedside at this time. He says his pain is only mild but not absent. We discussed the incidental finding on CT and now CT angiography. He does have the distended gallbladder to be followed with ultrasound which is still pending but also the incidental "focal ectasia measuring up to 21 mm in the axial plane of the distal abdominal aorta just proximal to its bifurcation with a small 6 mm left posterolateral penetrating ulcer partially surrounded by an up to 3 mm thick eccentric mural thrombus) he understands the need for eventual vascular surgery follow-up but given the pattern of his pain and location of his pain this is likely an incidental finding. His labs were reviewed, his white count went from 9.4 up to 11, INR was normal. He has mild elevation in the bilirubin and mild hyponatremia. 06/10/24 08:[address] Dawkins after prelim result of ultrasound from [facility] demonstrating pericholecystic fluid and mild wall thickening with no ductal dilatation consistent with probably cholecystitis. Dr. Dawkins plans to take him to the OR in a couple of hours for lap violeta. Disposition: Transfer to same-day surgery Condition: Stable Diagnosis: 1. Cholecystitis I did give his who is at the bedside the name of Migel Martinez in [place] for follow-up on the incidental issue.
--- NOTE | 2024-06-10 07:52 | CT Report ---
PROCEDURE: Angio Abdomen/Pelvis INDICATIONS: POSSIBLE ABDOMINAL AORTIC ULCER CONTRAST: 100 cc Omnipaque 300 TECHNIQUE: After the administration of intravenous contrast, 2.5 mm thick sections acquired from the diaphragm t o the symphysis. 10 mm maximum-intensity projection (MIP) reformats were then acquired. For radiati on dose reduction, the following was used: automated exposure control, adjustment of mA and/or kV ac cording to patient size. COMPARISON: CT of abdomen and pelvis from the same day. FINDINGS: Image quality: Excellent. VESSELS: Aorta: There is mild ectasia of infrarenal abdominal aorta measures up to 2.1 cm in diameter transve rse. There is a 6 mm left posterior lateral penetrating ulcer in distal abdominal aorta just proximal to the bifurcation partially surrounded by up to 5 mm eccentric mural thrombus. No ora abdominal a ortic aneurysm or dissection. Mesenteric arteries: Celiac trunk, superior and inferior mesenteric arteries appear patent. Right pelvic arteries: No hemodynamically significant stenosis or aneurysm. Left pelvic arteries: No hemodynamically significant stenosis or aneurysm. Please refer to CT of abdomen and pelvis from the same day for additional findings in abdomen or pelv is. IMPRESSION: 1. Focal ectasia involving distal abdominal aorta just proximal to bifurcation with small 6 mm left p osterior lateral penetrating ulcer partially surrounded by up to 5 mm thick eccentric mural thrombus formation. No ora abdominal aortic aneurysm or dissection. 2. Please refer to CT of abdomen and pelvis study report from the same day for additional findings. No discrepancies from preliminary reading. Reviewed by: Sanchez Escobar MD on 06/10/2024 7:50 AM PDT Approved by: Sanchez Escobar MD on 06/10/2024 7:50 AM PDT Station ID: [id number]
[2024-06-10 08:15] LABS: BAND NEUTROPHILS % (MANUAL) 3 %; LYMPHOCYTES # (MANUAL) 0.9 10^3/uL (1.5-3.5); LYMPHOCYTES % (MANUAL) 4 %; MONOCYTES # (MANUAL) 1.1 10^3/uL (0.0-1.0); REACTIVE LYMPHS % (MANUAL) 4 %
[2024-06-10 08:16] LABS: PLATELET ESTIMATE, MANUAL NORMAL (130-450,000) (NORMAL); PLATELET MORPHOLOGY NORMAL APPEARANCE (NORMAL); RBC MORPHOLOGY (MULTIPLE) NORMAL APPEARANCE (NORMAL)
[2024-06-10 08:17] LABS: WBC MORPHOLOGY (MULTIPLE) 1+ REACTIVE LYMPHS (NORMAL)
[2024-06-10 08:18] LABS: DIFFERENTIAL COMMENT MANUAL DIFFERENTIAL
--- NOTE | 2024-06-10 08:27 | Ultrasound Report ---
PROCEDURE: Abdomen Limited INDICATIONS: RUQ PAIN TECHNIQUE: Real-time focused scanning was performed of the abdomen, with image documentation. COMPARISONS: CT of abdomen and pelvis performed on the same day. FINDINGS: Liver: Liver is normal in size and heterogeneous in echotexture. Gallbladder: Gallbladder is markedly distended and measures 7.2 x 3.5 x 3.1 cm in size. Mobile debris is are noted within the gallbladder lumen. There is mild gallbladder wall thickening and pericholecy stic fluid. Positive sonographic Wilkerson's sign is also noted during the study. Biliary ducts: Intrahepatic bile ducts are non-dilated. Extrahepatic bile duct caliber measures 3 m m. Normal is 6-7 mm or less in diameter, or 10 mm or less post-cholecystectomy. Pancreas: Visualized portions of the pancreas are sonographically normal. Right kidney: Normal in size and echotexture. Right kidney measures 11.0 cm long. No hydronephrosis or nephrolithiasis. No solid masses. No complex renal cystic lesions which require follow-up. IVC: Intrahepatic inferior vena cava is patent. Miscellaneous: No free abdominal fluid. IMPRESSION: 1. Distended gallbladder with internal debris/tiny stones, gallbladder wall thickening, pericholecyst ic fluid and positive sonographic Wilkerson's sign consistent with acute cholecystitis. 2. No biliary ductal dilatation. 3. Hepatic steatosis. Reviewed by: Sanchez Escobar MD on 06/10/2024 8:25 AM PDT Approved by: Sanchez Escobar MD on 06/10/2024 8:25 AM PDT Station ID: [id number]
[2024-06-10] MEDS: DEXTROSE 5%-LACTATED RINGERS 1,000 ML IV SCH (09:07)
[2024-06-10] MEDS ORDERED: BUPIVACAINE 0.25% PF 30 ML VIAL ONE (09:37)
[2024-06-10] MEDS: BUPIVACAINE 0.25% PF 30 ML VIAL SUBQ ONE (10:04)
[2024-06-10] MEDS ORDERED: PROPOFOL 200 MG/20 ML VIAL IVP ONE (10:09)
[2024-06-10] MEDS ORDERED: fentaNYL 100 MCG/2 ML VIAL ONE (10:09)
[2024-06-10] MEDS ORDERED: ROCURONIUM 50 MG/5 ML VIAL ONE (10:09)
[2024-06-10] MEDS ORDERED: MIDAZOLAM 2 MG/2 ML VIAL ONE (10:09)
[2024-06-10] MEDS: ONDANSETRON 4 MG/2 ML VIAL IVP STA (10:16)
--- NOTE | 2024-06-10 10:23 | ANESTHESIA ---
Pre-Anesthesia VS, & Labs - Diagnosis Acute cholecystitis - Procedure Lap violeta Vital Signs: Temp Pulse Resp BP Pulse Ox O2 Flow Rate 36.4 C L 67 16 124/77 99 06/10/24 08:43 06/10/24 09:35 06/10/24 09:35 06/10/24 09:35 06/10/24 09:35 Height: 6 ft Weight (kg): 67.7 kg Body Mass Index: 20.2 BMI Classification: Normal - NPO >8 hours - Lab Results Current Lab Results: Laboratory Tests 06/10/24 06:39: Sodium 133 L, Potassium 5.0 H, Chloride 96 L, Carbon Dioxide 29, Anion Gap 8.0, BUN 8, Creatinine 1.0, Estimated GFR (MDRD) 75 L, Glucose 103, Calcium 9.2, Total Bilirubin 1.3 H, AST 18, ALT 11, Alkaline Phosphatase 45, Total Protein 7.1, Albumin 4.4, Globulin 2.7, Albumin/Globulin Ratio 1.6 06/10/24 06:39: WBC 11.0 H, RBC 5.27, Hgb 16.4, Hct 49.5, MCV 93.9, MCH 31.1 H, MCHC 33.1, RDW 14.2, Plt Count 210, MPV 10.6, Neut # (Auto) Not Reportable, Lymph # (Auto) Not Reportable, [place] # (Auto) Not Reportable, Eos # (Auto) Not Reportable, Baso # (Auto) Not Reportable, Absolute Nucleated RBC Not Reportable, Total Counted 100, Band Neuts % (Manual) 3, Reactive Lymphs % (Man) 4, Abnorm Lymph % (Manual) 0, Nucleated RBC % Not Reportable, Neutrophils # (Manual) 9.0 H , Lymphocytes # (Manual) 0.9 L, Monocytes # (Manual) 1.1 H, Eosinophils # (Manual) 0.0, Basophils # (Manual) 0.0, Differential Comment MANUAL DIFFERENTIAL, Manual Slide Review Indicated, WBC Morphology 1+ REACTIVE LYMPHS, Platelet Estimate NORMAL (130-450,000), Platelet Morphology NORMAL APPEARANCE, RBC Morph Micro Appear NORMAL APPEARANCE 06/10/24 00:49: PT 11.8, INR 1.1 06/10/24 00:36: Sodium 134 L, Potassium 3.8, Chloride 92 L, Carbon Dioxide 28, Anion Gap 14.0 H, BUN 12, Creatinine 1.1, Estimated GFR (MDRD) 67 L, Glucose 113 H, Calcium 10.3, Total Bilirubin 1.5 H, AST 18, ALT 12, Alkaline Phosphatase 45, Total Protein 7.5, Albumin 4.7, Globulin 2.8, Albumin/Globulin Ratio 1.7, Lipase 28 06/10/24 00:36: WBC 9.4, RBC 5.15, Hgb 16.3, Hct 47.6, MCV 92.4, MCH 31.7 H, MCHC 34.2, RDW 14.2, Plt Count 220, MPV 10.6, Neut # (Auto) 7.8 H, Lymph # (Auto) 0.9 L, [place] # (Auto) 0.5, Eos # (Auto) 0.0, Baso # (Auto) 0.1, Absolute Nucleated RBC 0.00, Nucleated RBC % 0.0 Lab results reviewed: Yes Fish Bones: 06/10/24 06:39 06/10/24 06:39 Home Medications and Allergies Home Medications: Ambulatory Orders Losartan Potassium 25 mg PO DAILY 06/10/24 Testosterone Cypionate 0.5 ml IM OAW 06/10/24 ursodioL [Actigall] 300 mg PO BID 06/10/24 Active Medications Dextrose/Lactated Ringer's (D5lr) 1,000 mls @ 125 mls/hr IV .Q8H RADHA Last Admin: 06/10/24 09:07 Dose: 125 mls/hr Omeprazole Magnesium 5 mg PO DAILY 12/27/21 Losartan Potassium 25 mg PO DAILY 06/10/24 Testosterone Cypionate 0.5 ml IM OAW 06/10/24 ursodioL [Actigall] 300 mg PO BID 06/10/24 Allergies/Adverse Reactions: Allergies Allergy/AdvReac Type Severity Reaction Status Date / Time No Known Drug Allergies Allergy Verified 06/10/24 00:29 Anes History & Medical History - Anesthetic History Anesthesia Complications: reports: Post-Operative Nausea/Vomiting - Medical History Cardiovascular: reports: Hypertension, Other (ABdominal CTA showed incidental finding "focal ectasia involving distal abdominal aorta just proximal to bifurcation with small 6mm left posterior lateral penetrating ulcer partially surrounded by up to 5mm thick eccentric mural thrombus formation. No ora abdominal aortic aneurysm or dissection.") Pulmonary: reports: None Gastrointestinal: reports: GERD Urinary: reports: None Neuro: reports: None Musculoskeletal: reports: Chronic back pain Endocrine/Autoimmune: reports: None Blood Disorders: reports: None Skin: reports: None Smoking Status: Never smoker Psychosocial: reports: Cannabis (once per week) - Surgical History General: reports: Hiatal hernia repair Results - EKG Results EKG Comparison: Reviewed EKG Exam General: Alert, Oriented x3, Cooperative, No acute distress Dental: WNL Mouth Openin Fingerbreadth Neck Mobility: Normal Mallampati classification: III Thyromental Distance: 4-6 cm Mental/Cognitive Status: Alert/Oriented X3, Normal for patient Plan Anesthesia Type: General Consent for Procedure(s) Verified and Reviewed: Yes Code Status: Attempt Resuscitation ASA classification: 3-Severe systemic disease Is this case an emergency?: Yes
[2024-06-10] MEDS ORDERED: HYDROmorphone 0.5 MG/0.5 ML SYRINGE IVP PRN ×3 (10:31→12:36)
[2024-06-10] MEDS ORDERED: ONDANSETRON 4 MG/2 ML VIAL IVP PRN ×3 (10:31→12:36)
[2024-06-10] MEDS ORDERED: ATROPINE ABBOJECT 1 MG/10 ML SYRINGE IVP PRN ×2 (10:31→12:02)
[2024-06-10] MEDS ORDERED: NALOXONE 0.4 MG/ML VIAL IVP PRN ×2 (10:31→12:02)
[2024-06-10] MEDS ORDERED: fentaNYL 100 MCG/2 ML VIAL IVP PRN ×2 (10:31→12:02)
[2024-06-10] MEDS ORDERED: MORPHINE 2 MG/ML CARPUJECT IVP PRN ×2 (10:31→12:02)
[2024-06-10] MEDS ORDERED: SODIUM CHLORIDE 0.9% MINIBAG 100 ML IV ONE (10:33)
[2024-06-10] MEDS ORDERED: ceFAZolin 2 GM VIAL ONE (10:33)
--- NOTE | 2024-06-10 10:34 | HISTORY & PHYSICAL EXAMINATION ---
Chief Complaint - Chief Complaint Chief Complaint: right upper quadrant pain on and off for months History of Present Illness - History Obtained From Records Reviewed: yes History obtained from: pt Exam Limitations: none - History of Present Illness HPI Comment/Other: right upper quadrant and back pain intermittent for months. worse after fatty foods. no dark or orange urine. pain much worse yesterday and not improving. History - Past Medical History Cardiovascular: reports: Hypertension, Other (ABdominal CTA showed incidental finding "focal ectasia involving distal abdominal aorta just proximal to bifurcation with small 6mm left posterior lateral penetrating ulcer partially surrounded by up to 5mm thick eccentric mural thrombus formation. No ora abdominal aortic aneurysm or dissection.") Respiratory: reports: None Neuro: reports: None Endocrine/Autoimmune: reports: None GI: reports: GERD : reports: None HEENT: reports: None Psych: reports: Anxiety Musculoskeletal: reports: Chronic back pain Derm: reports: None MRSA Hx?: No - Past Surgical History General: reports: Hiatal hernia repair - Family & Social History Family History Comment/Other: Denies any significant medical problem in his family members - Substance History Use: Uses substance without health or social issues: Alcohol (Reports drinking on average 3 beers daily) - POLST Patient has POLST: No POLST Status: Full Code Meds/Allgy - Home Medications Home Medications: Ambulatory Orders Medication Instructions Recorded Confirmed Omeprazole Magnesium 5 mg PO DAILY 12/27/21 06/10/24 Losartan Potassium 25 mg PO DAILY 06/10/24 06/10/24 Testosterone Cypionate 0.5 ml IM OAW 06/10/24 06/10/24 ursodioL [Actigall] 300 mg PO BID 06/10/24 06/10/24 - Allergies Allergies/Adverse Reactions: Allergies Allergy/AdvReac Type Severity Reaction Status Date / Time No Known Drug Allergies Allergy Verified 06/10/24 00:29 Review of Systems - Other Findings Other Findings: 10 pt ros as above otherwise unremarkable Exam - Vital Signs Vital Signs: Vital Signs x48h Temp Pulse Resp BP Pulse Ox 06/10/24 09:35 67 16 124/77 99 06/10/24 08:43 36.4 C L 79 16 136/86 H 99 06/10/24 07:32 80 16 133/84 H 96 06/10/24 06:00 82 16 155/97 H 96 06/10/24 04:00 74 16 155/97 H 94 06/10/24 02:34 81 16 153/94 H 98 - Physical Exam General Appearance: positive: No acute distress, Alert Eyes Bilateral: positive: PERRL, EOMI ENT: positive: No signs of dehydration Neck: positive: No JVD, Trachea midline Respiratory: positive: No respiratory distress Cardiovascular: positive: Regular rate & rhythm Abdomen: positive: Tenderness (right upper abd) Neurologic/Psychiatric: positive: Oriented x3 Conclusion/Plan - Problem List (1) Cholecystitis Conclusion/Plan: plan lap violeta. parq held and consent obtained - Lab Results Lab results reviewed: Yes Fish Bones: 06/10/24 06:39 06/10/24 06:39 - Diagnostic Imaging Results Diagnostic Imaging Results: positive: Read independently
[2024-06-10] MEDS ORDERED: PHENYLEPHRINE 10 MG/ML VIAL ONE (10:59)
[2024-06-10] MEDS ORDERED: PHENYLEPHRINE HCL 0.5 MG/5 ML AMPULE ONE (10:59)
[2024-06-10] MEDS ORDERED: DEXAMETHASONE 10 MG/ML VIAL ONE (10:59)
[2024-06-10] MEDS ORDERED: ePHEDrine 50 MG/ML VIAL IVP ONE (11:03)
[2024-06-10] MEDS ORDERED: SUGAMMADEX 200 MG/2 ML VIAL IVP ONE (11:56)
[2024-06-10] MEDS ORDERED: ONDANSETRON 4 MG/2 ML VIAL ONE (11:59)
[2024-06-10] MEDS: LACTATED RINGERS 1,000 ML IV ONE (12:26)
[2024-06-10] MEDS ORDERED: ACETAMINOPHEN 1,000 MG/100 ML 1,000 MG/100 ML BAG IV PRN (12:32)
--- NOTE | 2024-06-10 12:52 | OPERATIVE REPORT ---
Operative Report - General Procedure Date: 06/10/24 Planned Procedure: lap violeta Pre-Op Diagnosis: cholecystitis Procedure Performed: lap violeta Post Op Diagnosis: cholecystitis - Procedure Note Primary Surgeon: emmy zepeda Anesthesia Technique: General ET tube, Local Pathology: gb Estimated Blood Loss (mL): 10 Drain/Tube Type: Other (none) Indications: painful gallbladder. not improving Findings: tense edematous gallbladder and considerable retroperitoneal edema Complications: none - Other Other Information/Narrative: The patient was prepped identified brought to the operating room and placed in supine position. Sequential compression devices were placed. He was prepped and draped in a sterile fashion and given preoperative antibiotics. Local a nesthetic was given to incision areas. Infraumbilical incision was made. Dissection proceeded down to the fascia. The fascia was incised lifted upwards and abdomen entered with a Veress needle. CO2 was insufflated to a pressure of 15. An 11 mm trocar with 30 degree scope was placed under vision. There was no evidence of injury from Veress needle or trocar placement. Under direct vision two 5 mm trocars were placed in the right upper quadrant and an 11 mm trocar was placed in the epigastrium. His gallbladder was approximately 3 times normal in size. It was tense and edematous. He had significant retroperitoneal edema along the common bile duct and the common hepatic duct as well. Omentum was pulled down away from the gallbladder. The gallbladder was aspirated to allow retraction. Body of the gallbladder was retracted anterior and cephalad. Omentum was further pulled away from the infundibulum of the gallbladder. Infundibulum of the gallbladder was retracted right lateral and caudad. Lateral attachments were partially taken down to create a large bare cystic plate area or window. The cystic duct and cystic artery both were clearly identified. They are inspected from right lateral and left lateral positions. The cystic artery was clipped at the gallbladder and x 2 slightly proximal. The cystic duct was clipped at the gallbladder and cystic duct partially open. Even had a more narrow spot of the cystic duct that appeared to be scarred closed. There was no evidence of stones within the cystic duct. The cystic duct was then further clipped x 3 and both the cystic duct and cystic artery sharply divided. There was a small posterior cystic artery branch which was clipped and divided. Gallbladder was removed from the bed of the liver placed in an Endo Catch bag and brought out. The abdomen was thoroughly irrigated. Hemostasis was assured. Trocars were removed under direct vision. Fascia at the infraumbilical and epigastric site was closed with running 0 Vicryl suture. Skin was closed with buried interrupted and running 4-0 Monocryl subcuticular suture. Dressings were applied. Tolerated the procedure well was awakened and brought to recovery in good condition.
[2024-06-10] MEDS: LACTATED RINGERS 1,000 ML IV SCH ×2 (13:44)
[2024-06-10] MEDS: PANTOPRAZOLE 40 MG TABLET PO SCH (14:15)
[2024-06-10] MEDS: traMADol 50 MG TABLET PO PRN (14:16)
[2024-06-10 14:56] VITALS: BP 131/83; O2SAT 97
--- NOTE | 2024-06-10 17:07 | ANESTHESIA POST OP EVALUATION ---
Anesthesia Post Eval - Post Anesthesia Eval Vitals: Last Vital Signs Temp 36.4 C L 06/10/24 14:49 Pulse 78 06/10/24 14:49 Resp 18 06/10/24 14:49 BP 131/83 H 06/10/24 14:49 Pulse Ox 97 06/10/24 14:49 O2 Flow Rate 2 06/10/24 10:32 CV Function Including HR & BP: Stable Pain Control: Satisfactory Nausea & Vomiting: Negative Mental Status: Baseline Respiratory Status: Airway Patent Hydration Status: Satisfactory Anesthesia Complications: None
== END 2024-06-10 15:27 | disposition home or self-care (01) ==
LOC: EDUNIT# → ED 00:28 → SDS 10:15 → MS2 13:25 → SDS 15:27
PROVIDERS: ATTEND Surgery
PROC: 0FT44ZZ Resection of Gallbladder, Percutaneous Endoscopic Approach (ICD-10-PCS; principal; 2024-06-10 10:30)
DX: K81.0 Acute cholecystitis (principal); I74.09 Other arterial embolism and thrombosis of abdominal aorta; I10 Essential (primary) hypertension
CPT/HCPCS: 36415; 47562; 74174; 74177; 76705; 80053; 83690; 85025; 85610; 93005; 96374; 96375; 96376; 99285; A9270; J1170; J2372; J7120; Q9967